=== PATIENT | male | born 1960 | race Caucasian/White ===

== ENCOUNTER 2021-05-31 13:39 | Outpatient (REF) | payer BC, SELFPAY ==
--- NOTE | ~2021-05-31 | XR_ITS ---
EXAMINATION: XR BILATERAL HIPS WITH AP PELVIS CLINICAL INFORMATION: Hip pain. COMPARISON: 06/04/2018 TECHNIQUE: 2 views of each hip. FINDINGS: There is no fracture or dislocation. The femoral heads are well-seated within their acetabula. There is mild joint space narrowing of both hips with subchondral sclerosis. Small marginal osteophytes. The pelvic rim is intact. The sacroiliac joints and pubic symphysis are intact. Phleboliths in the pelvis. XR/XR hips KOBI min 3V IMPRESSION: Mild degenerative changes of both hips, similar to prior.
== END 2021-05-31 13:40 | disposition home or self-care (01) ==
LOC: HO.HMGCX 13:39
PROVIDERS: PCP Internal Medicine; Visit Provider Internal Medicine
DX: M25.551 Pain in right hip (principal); M25.552 Pain in left hip
CPT/HCPCS: 73522

== ENCOUNTER → 2021-07-15 13:14 | Outpatient (BNVA) | payer BC, SELFPAY | PROVIDERS: PCP Internal Medicine; Visit Provider Physician Assistant Medical | DX: F17.210 Nicotine dependence, cigarettes, uncomplicated (principal); Z71.6 Tobacco abuse counseling | CPT/HCPCS: G0296 ==

== ENCOUNTER 2021-10-09 10:19 | Emergency (ER) | payer BC, SELFPAY ==
--- NOTE | ~2021-10-09 | XR_ITS ---
EXAMINATION: XR LUMBOSACRAL SPINE CLINICAL INFORMATION: Low back pain COMPARISON: January 2018 TECHNIQUE: Three views of the lumbosacral spine. FINDINGS: The vertebral bodies and posterior elements are normal. The disc spaces are preserved and the vertebral alignment is normal. There is minimal spurring of endplates of L3-L4 and mild facet hypertrophy at the level of L4-L5 and L5-S1, without interval change. The paraspinal soft tissues are normal. XR/XR lumbar spine 2-3V IMPRESSION: Minimal degenerative changes without interval change.
[2021-10-09 10:29] VITALS: BP 169/88; PULSE 118; RESP 20; TEMP 36.3; O2SAT 97; BMI 28.8
--- NOTE | 2021-10-09 12:21 | ED.BACK ---
HPI - Back Pain/Injury General Chief Complaint: Back Pain/Injury Stated Complaint: Back pain Time Seen by Provider: 10/09/21 12:21 Source: patient Mode of arrival: ambulatory Limitations: no limitations History of Present Illness HPI Narrative: 61-year-old male past medical history anxiety, hypertension, chronic right flank pain presenting to the emergency department with complaints of lower back pain status post heavy lifting yesterday. Patient tells me that he was Patient denies numbness, tingling, urinary/bowel incontinence, weakness, saddle paresthesias, chest pain, shortness of breath, fevers, chills, nausea, vomiting. Patient denies history of IV drug abuse. Denies history of previous back procedures/surgeries. MD elicited complaint: back pain Pertinent past history: other (heavy lifting ) Onset (ago): day(s) (2) Timing: constant Severity: severe Quality: spasming and throbbing Location: lumbar spine Radiation: none Exacerbating factors: none Relieving factors: none Context: while lifting Associated symptoms: denies other symptoms Related Data Previous Rx's Medication Instructions Recorded atorvastatin 40 mg tablet 40 mg PO DAILY #90 tab 08/30/20 metoprolol succinate 100 mg 150 mg PO DAILY #135 tab 08/30/20 tablet,extended release 24 hr pantoprazole 40 mg tablet,delayed 40 mg PO DAILY #30 tab 05/02/21 release bupropion HCl 150 mg tablet,12 hr 150 mg PO DAILY #90 tab 06/23/21 sustained-release cyclobenzaprine 10 mg tablet 10 mg PO BEDTIME PRN #7 tab 10/09/21 lidocaine 5 % topical patch 1 patch TOPICAL DAILY PRN #15 ea 10/09/21 naproxen 500 mg tablet 500 mg PO BID #14 tab 10/09/21 Allergies Allergy/AdvReac Type Severity Reaction Status Date / Time No Known Allergies Allergy Verified 05/31/21 12:59 Review of Systems Review of Systems: Constitutional : No Weight loss, No Fever, No Chills, No Fatigue, No Malaise ENT/Mouth : No sore throat, No Rhinorrhea Eyes: No Eye Pain, No Swelling, No Redness Cardiovascular : No Chest Pain, No SOB, No Dyspnea on Exertion, No Orthopnea, No Edema, No Palpitations Respiratory : No Cough, No Sputum, No Wheezing Gastrointestinal : No Nausea, No Vomiting, No Diarrhea, No Constipation, No abdominal Pain, No Hematochezia, No Melena Genitourinary : No Dysuria, No Urinary Frequency, No Hematuria, Musculoskeletal : + joint pain, No Myalgias, No Joint Swelling Skin : No Skin Lesions, No rash Neuro : No Weakness, No Numbness, No Dizziness, No Headache Psych : No Anxiety/Panic, No Depression All other systems reviewed and are negative PMFSH Past Medical History Attestation statement: The following information was validated with the patient. Source: old records reviewed and nursing notes reviewed Medical History Chronic anxiety Chronic right flank pain Colonoscopy refused Complex renal cyst Hip pain, bilateral Hyperlipidemia Hypertension Personal history of nicotine dependence Renal cyst, acquired, right Tobacco dependence Surgical History History of colonoscopy History of left knee surgery Social History Social History Housing: House Alcohol intake: current Alcohol intake frequency: holidays/special occasions only Alcohol type: beer Patient Tobacco Use Status: Current everyday Tobacco user Tobacco use type: Cigarette Cigarettes Per Day: 15 Years Smoked: 35, onset 23, 3/4ppd x 35yrs, 25+PYH Advance Directives: No Advance Directives Information Provided: No Current occupational status: employed Physical Exam Vital Signs: Vital Signs: Last Vital Signs Temp 97.4 F 10/09/21 10:29 Pulse 118 H 10/09/21 10:29 Resp 20 10/09/21 10:29 BP 169/88 H 10/09/21 10:29 Pulse Ox 97 10/09/21 10:29 BMI result Body Mass Index 28.8 Vital signs stable. Appearance: Alert.? Oriented X3.? No acute distress.? Head: Normocephalic, atraumatic, no step-offs or deformities Eyes: Pupils equal, round and reactive to light.? CVS: Normal heart rate and rhythm.? Pulses normal.? Respiratory: No respiratory distress.? Breath sounds normal.? Abdomen: Soft and nontender.? Skin: Skin warm and dry.? Normal skin color.? Normal skin turgor.? Extremities: 5/5 strength to bilateral upper and lower extremities. Negative straight leg raise b/l Back: No midline tenderness, no C-spine tenderness, + full range of motion however pain to lower back with forward flexion and extension, no CVA tenderness bilaterally. + pain w/ palpation of lumbar paraspinous muscles b/l. Neuro: Oriented X 3.? No motor deficit.? No sensory deficit. CN 2-12 intact . No saddle paresthesias. 2+ patellar reflexes equal bilateral. Two point extinction intact. Course Reevaluation(s) Reevaluation #1: Educated patient on treatment, diagnosis. Advised him to return with new or worsening symptoms. Outlined these symptoms on his discharge. Comfortable w/ discharge home. I also advised patient to follow-up with his PCP. Upon discharge patient ambulating with steady gait. Normal strength. Neuro exam nonfocal. No sensory or motor impairment. No saddle paresthesias. Likely muscle strain or herniated disc. Advised him to follow-up with his PCP to discuss future imaging such as MRI. Time: 12:25 MDM - Back Pain/Injury MDM Narrative Medical decision making narrative: 1223 61 yo m presenes w/ lower back pain s/p heavy lifting X2 days PE with pain w/ palpation of lumbar paraspinous muscles. Pain to lower back with forward bending, twisting. 2+ patellar reflexes equal bilateral. Sensory motor intact upper and lower extremities. No saddle paresthesias. 5/5 strength upper and lower extremities. Patient upset because I was not giving him a narcotic while here. I explained to him that I could not give him a narcotic as he is driving home and he does not want to wait 4 hours. Refused Tordol. Plan at this time is to discharge patient home with NSAID, muscle relaxers. Patient requesting imaging Medical Records Attestation: I reviewed the patient's medical records. Lab Data Attestation: I reviewed the patient's lab results. Critical Care Time Critical Care Time Critical Care Time: No Discharge Plan Discharge Clinical Impression: Strain of lumbar region Patient Disposition: Home, Self-Care Instructions: Low Back Strain (ED), Acute Low Back Pain (ED) Additional Instructions: Take your medications as prescribed. If you were prescribed antibiotics today, it is important that you take your medication to their entirety, do not skip any doses, do not finish them early. Follow-up with your primary care provider this week. You can speak to them about the possibility of further imaging such as an MRI. As I explained to you x-rays do not show herniated discs. Return to the emergency department with new or worsening symptoms. Such as fevers, chills, chest pain, shortness of breath, nausea, vomiting, dizziness, headache, vision changes, lethargy, inability control urine or stool, weakness numbness or tingling In case of emergency call 911 I sent a muscle relaxer to her pharmacy, this medication can make you sleepy. Do not take this when driving or operating machinery. Use this medication with caution. FINDINGS: The vertebral bodies and posterior elements are normal. The disc spaces are preserved and the vertebral alignment is normal. There is minimal spurring of endplates of L3-L4 and mild facet hypertrophy at the level of L4-L5 and L5-S1, without interval change. The paraspinal soft tissues are normal. XR/XR lumbar spine 2-3V IMPRESSION: Minimal degenerative changes without interval change. Prescriptions: New cyclobenzaprine 10 mg tablet 10 mg PO BEDTIME PRN (Reason: muscle spasm) Qty: 7 0RF lidocaine 5 % adhesive patch,medicated 1 patch topical DAILY PRN (Reason: pain) Qty: 15 0RF Rx Instructions: leave on most painful area for up to 12 hrs naproxen 500 mg tablet 500 mg PO BID Qty: 14 0RF No Action atorvastatin 40 mg tablet 40 mg PO DAILY Qty: 90 3RF metoprolol succinate 100 mg tablet extended release 24 hr 150 mg PO DAILY Qty: 135 3RF pantoprazole 40 mg tablet,delayed release (DR/EC) 40 mg PO DAILY Qty: 30 4RF bupropion HCl 150 mg tablet sustained-release 12 hr 150 mg PO DAILY Qty: 90 3RF Referrals: Parris Devi MD [Primary Care Provider] - 2 days Stand Alone Forms: Work/School Release
[2021-10-09] MEDS: Acetaminophen 325 MG TABLET 975 MG PO (12:45)
[2021-10-09] MEDS: Lidocaine 4 % Patch ADH..PATCH 1 PATCH TRANSDERMA (12:46)
== END 2021-10-09 13:27 | disposition home or self-care (01) ==
PROVIDERS: Emergency Provider Emergency Medicine; PCP Internal Medicine
DX: S39.012A Strain of muscle, fascia and tendon of lower back, initial encounter (principal); I10 Essential (primary) hypertension; X50.0XXA Overexertion from strenuous movement or load, initial encounter; Y93.9 Activity, unspecified; Y92.9 Unspecified place or not applicable; Y99.9 Unspecified external cause status
CPT/HCPCS: 72100; 99283; 99284

== ENCOUNTER 2022-07-29 07:15 | Outpatient (REF) | payer BC, SELFPAY ==
[2022-07-29 10:50] LABS: MANUAL DIFF FLAG NO
[2022-07-29 10:55] LABS: Basophils Percent Auto 0.6 % (0-2); Eosinophils Absolute Auto 0.3 X10*3/uL (0.0-0.4); Eosinophils Percent Auto 4.5 % (0-4); Hematocrit 46.6 % (42.0-52.0); Hemoglobin 15.1 g/dl (14.0-18.0); Imm Gran Abs Auto 0.02 X10*3/uL (0.00-0.03); Imm Gran Pct Auto 0.3 % (0.0-0.4); Lymphocytes Absolute Auto 1.4 X10*3/uL (1.2-4.9); Lymphocytes Percent Auto 21.1 % (20-40); Mean Corpuscular HGB Conc 32.4 g/dl (31.0-36.0); Mean Corpuscular Hemoglobin 30.6 pg (27.0-33.0); Mean Corpuscular Volume 94.3 fL (80.0-98.0); Mean Platelet Volume 11.1 fL (9.4-12.4); Monocytes Absolute Auto 0.6 X10*3/uL (0.1-1.2); Monocytes Percent Auto 8.9 % (2-11); Neutrophils Absolute Auto 4.1 x10*3/uL (2.0-8.3); Neutrophils Percent Auto 64.6 % (45-73); Platelet Count 245 X10*3/uL (160-400); Red Blood Count 4.94 X10*6/uL (4.60-5.80); Red Cell Distribution Width 14.3 % (11.0-16.0); White Blood Count 6.4 X10*3/uL (4.8-10.8)
[2022-07-29 12:34] LABS: Alanine Aminotransferase 36 U/L (0-40); Albumin Level 4.3 g/dL (3.5-5.0); Alkaline Phosphatase 94 U/L (39-117); Anion Gap 15 (12-20); Aspartate Amino Transferase 27 U/L (5-37); Bilirubin Total 0.5 mg/dL (0.0-1.0); Blood Urea Nitrogen 18 mg/dL (9-16); Calcium 9.5 mg/dL (8.4-10.2); Carbon Dioxide 25 mmol/L (22-29); Chloride 109 mmol/L (96-108); Cholesterol 195 mg/dL; Estimated Glomerular Filt Rate > 60; Glucose Fasting 116 mg/dL (60-99); HDL Cholesterol 36 mg/dL; PSA,Total (Free>4and<10) 1.93 ng/mL (0.00-4.00); Potassium 5.3 mmol/L (3.3-5.1); Sodium 144 mmol/L (135-145); Triglycerides 552 mg/dL
== END 2022-07-29 07:16 | disposition home or self-care (01) ==
LOC: HO.HMGCLDS 07:15
PROVIDERS: Visit Provider Internal Medicine
DX: Z12.5 Encounter for screening for malignant neoplasm of prostate (principal); E78.5 Hyperlipidemia, unspecified; I10 Essential (primary) hypertension
CPT/HCPCS: 36415; 80053; 80061; 84153; 85025

== ENCOUNTER 2022-09-03 11:23 | Emergency (ER) | payer BC, SELFPAY ==
[2022-09-03 11:29] VITALS: BP 142/86; PULSE 109; RESP 18; TEMP 36.4; O2SAT 99; BMI 28.8
--- NOTE | 2022-09-03 11:29 | ED_ITS ---
HPI - Neck Pain/Injury General Chief Complaint: General Medical Stated Complaint: Neck pain Time Seen by Provider: 09/03/22 11:31 Source: patient and family Mode of arrival: ambulatory Limitations: no limitations History of Present Illness HPI Narrative: 61 yo male with history of HTN presents to the ER for evaluation of non- traumatic, left sided neck pain & stiffness that has been worsening for the last 2 days. He states it has been very sore and stiff on the left side of his neck. It is worse with range of motion and movement. He denies any associated headache or fevers. He did have night sweats 2 nights ago. No other signs of infection. He never has had neck pain like this before. He denies any radiation of the pain. No numbness, weakness, tingling in the left upper extremity. He has taken Motrin with intermittent, slight improvement. MD complaint: neck pain Onset (ago): day(s) (2) Place: home Radiation: left lateral Severity: moderate Quality: aching and spasming Duration: constant Relieving factors: remaining still Exacerbating factors: movement of neck Context: unknown Associated symptoms: none Treatments prior to arrival: none Related Data Previous Rx's Medication Instructions Recorded atorvastatin 40 mg tablet 40 mg PO DAILY #90 tabs 08/09/22 bupropion HCl 150 mg tablet,12 hr 150 mg PO DAILY #90 tabs 08/09/22 sustained-release fenofibrate 160 mg tablet 160 mg PO DAILY #90 tabs 08/09/22 metoprolol succinate 100 mg 150 mg PO DAILY #135 tabs 08/09/22 tablet,extended release 24 hr pantoprazole 40 mg tablet,delayed 40 mg PO DAILY #90 tabs 08/09/22 release varenicline 0.5 mg (11)-1 mg (42) See Rx Instructions PO PER PKG DIR 08/09/22 tablets in a dose pack (Chantix #53 ea Starting Month Box) varenicline 1 mg tablet (Chantix 1 mg PO BID #56 tabs 08/09/22 Continuing Month Box) cyclobenzaprine 10 mg tablet 10 mg PO TID PRN muscle spasm #14 09/03/22 tabs ibuprofen 600 mg tablet 600 mg PO Q8H PRN pain #14 tabs 09/03/22 lidocaine 5 % topical patch 1 patch topical DAILY #15 ea 03/12/23 oxycodone 5 mg tablet 5 mg PO BID PRN severe pain (scale 09/03/22 score 7-10) #4 tabs Allergies Allergy/AdvReac Type Severity Reaction Status Date / Time No Known Allergies Allergy Verified 09/03/22 11:31 Review of Systems Review of Systems: Yes all other systems are reviewed and are negative [facility] Past Medical History Medical History Chronic anxiety Chronic right flank pain Colonoscopy refused Complex renal cyst Hip pain, bilateral Hyperlipidemia Hypertension Personal history of nicotine dependence Renal cyst, acquired, right Tobacco dependence Surgical History History of colonoscopy History of left knee surgery Social History Social History Housing: House Alcohol intake: current Alcohol intake frequency: holidays/special occasions only Alcohol type: beer Patient Tobacco Use Status: Current everyday Tobacco user Tobacco use type: Cigarette Cigarettes Per Day: 15 Years Smoked: 35, onset 23, 3/4ppd x 37yrs, 25+PYH e-Cigarette/Vaping Use: Never Used Advance Directives: No Advance Directives Information Provided: No Current occupational status: employed Cognitive needs: No Hearing needs: No Vision needs: Yes Physical Exam Vital Signs: Vital Signs: Last Vital Signs Temp 97.5 F 09/03/22 11:29 Pulse 109 H 09/03/22 11:29 Resp 18 09/03/22 11:29 BP 142/86 H 09/03/22 11:29 Pulse Ox 99 09/03/22 11:29 O2 Del Method 09/03/22 11:29 BMI result Body Mass Index 28.8 Appearance: Alert. Oriented X3. No acute distress. HEENT: normal external inspection Neck: normal inspection, left lateral neck with palpable muscle spasm and soft tissue tenderness, pain with ROM. no midline tenderness. no nuchal rigidity. CVS: Normal heart rate and rhythm. Pulses normal. Respiratory: No respiratory distress. Skin: Skin warm and dry. Normal skin color. Normal skin turgor. No rashes. Extremities: normal inspection x4, normal ROM Neuro: Oriented X 3. No motor deficit. No sensory deficit. Course Reevaluation(s) Reevaluation #1: much improved after meds. stable for d/c home. Medications Administered Discontinued Medications Generic Name Dose Route Start Last Admin Trade Name Donte PRN Reason Stop Dose Admin Cyclobenzaprine HCl 10 mg 09/03/22 11:31 09/03/22 11:49 Cyclobenzaprine Hcl 10 Mg Tablet PO 09/03/22 11:32 10 mg ONCE ONE Administration Ketorolac Tromethamine 30 mg 09/03/22 11:31 09/03/22 11:49 Ketorolac Tromethamine 30 Mg/Ml Vial IM 09/03/22 11:32 30 mg ONCE ONE Administration Oxycodone HCl 5 mg 09/03/22 11:31 09/03/22 11:50 Oxycodone Hcl Immed Release 5 Mg Tablet PO 09/03/22 11:32 5 mg ONCE ONE Administration Medical Decision Making Medical Decision Making MDM Narrative: 61-year-old male presents to the ER for evaluation of nontraumatic left-sided neck pain and tightness that started 2 days ago. He denies any injury or trauma. He has palpable spasm along lateral neck without any associated headaches or lymphadenopathy. Exam and clinical presentation are consistent with cervical muscle strain/spasmodic torticollis. He is tachycardic in triage and in pain. Will medicate and reassess. 12:30 - patient reports significant improvement in his pain after dose of Toradol, muscle relaxer and pain medication. Will discharge on similar regimen. Discussed diagnosis and management as well as return precautions. Stable for discharge home. All questions were answered. Patient agrees with plan Differential Diagnosis Differential Diagnoses: The differential diagnosis associated with the presentation includes Torticollis, cervical muscle strain, less likely arterial dissection, no evidence of any skin rash or abscess Independent Historian Clinical information obtained from an independent historian. History obtained from or confirmed by: Spouse External Record Review External record reviewed: Prior outpatient labs Prescription Management I considered prescription management with: Pain Medication Chronic Conditions Patient?s care impacted by: Hypertension Critical Care Time Critical Care Time Critical Care Time: No Discharge Plan Discharge Clinical Impression: Acute torticollis Patient Disposition: Home, Self-Care Instructions: Spasmodic Torticollis (ED) Additional Instructions: Take the prescribed medications as directed. Use ice or heat to the area several times per day, which ever feels better. Gently work on range of motion and gentle massage to the area. Follow-up with your doctor as needed. If you develop new or worsening symptoms call 911 or come back to the ER for further evaluation. Prescriptions: New cyclobenzaprine 10 mg tablet 10 mg PO TID PRN (Reason: muscle spasm) Qty: 14 0RF lidocaine 5 % adhesive patch,medicated 1 patch topical DAILY Qty: 15 0RF Rx Instructions: leave on most painful area for up to 12 hrs ibuprofen 600 mg tablet 600 mg PO Q8H PRN (Reason: pain) Qty: 14 0RF oxycodone 5 mg tablet 5 mg PO BID PRN (Reason: severe pain (scale score 7-10)) Qty: 4 0RF Rx Instructions: Partial Fill upon patient request. No Action atorvastatin 40 mg tablet 40 mg PO DAILY Qty: 90 3RF bupropion HCl 150 mg tablet sustained-release 12 hr 150 mg PO DAILY Qty: 90 3RF metoprolol succinate 100 mg tablet extended release 24 hr 150 mg PO DAILY Qty: 135 3RF pantoprazole 40 mg tablet,delayed release (DR/EC) 40 mg PO DAILY Qty: 90 3RF varenicline [Chantix Starting Month Box] 0.5 mg (11)- 1 mg (42) tablets,dose pack See Rx Instructions PO PER PKG DIR Qty: 53 0RF Rx Instructions: PO PER PKG DIR varenicline [Chantix Continuing Month Box] 1 mg tablet 1 mg PO BID Qty: 56 1RF fenofibrate 160 mg tablet 160 mg PO DAILY Qty: 90 3RF Referrals: Parris Devi MD [Primary Care Provider] - Stand Alone Forms: Work/School Release Discharge Date/Time: 09/03/22 12:39
[2022-09-03] MEDS: Cyclobenzaprine HCl 10 MG TABLET PO (11:49)
[2022-09-03] MEDS: Ketorolac Tromethamine 30 MG/ML VIAL IM (11:49)
[2022-09-03] MEDS: oxyCODONE HCl Immed Release 5 MG TABLET PO (11:50)
== END 2022-09-03 12:39 | disposition home or self-care (01) ==
PROVIDERS: Emergency Provider Student in an Organized Health Care Education/Training Program; PCP Internal Medicine
DX: M43.6 Torticollis (principal); M54.2 Cervicalgia; R51.9 Headache, unspecified; F17.210 Nicotine dependence, cigarettes, uncomplicated; Z79.899 Other long term (current) drug therapy; Z71.6 Tobacco abuse counseling
CPT/HCPCS: 96372; 99283; 99284; J1885

== ENCOUNTER 2022-09-29 06:45 | Outpatient (REF) | payer BC, SELFPAY ==
[2022-09-29 12:06] LABS: Estimated Average Glucose 126 mg/dL
[2022-09-29 12:07] LABS: Alanine Aminotransferase 23 U/L (0-40); Albumin Level 3.9 g/dL (3.5-5.0); Alkaline Phosphatase 80 U/L (39-117); Anion Gap 10 (12-20); Aspartate Amino Transferase 23 U/L (5-37); Bilirubin Total 0.8 mg/dL (0.0-1.0); Blood Urea Nitrogen 19 mg/dL (9-16); Calcium 9.1 mg/dL (8.4-10.2); Carbon Dioxide 29 mmol/L (22-29); Chloride 108 mmol/L (96-108); Cholesterol 179 mg/dL; Estimated Glomerular Filt Rate > 60; Glucose Fasting 101 mg/dL (60-99); HDL Cholesterol 44 mg/dL; LDL Cholesterol Calculated 87 mg/dl; Potassium 5.2 mmol/L (3.3-5.1); Sodium 142 mmol/L (135-145); Total Protein 6.5 g/dL (6.5-8.0); Triglycerides 241 mg/dL
== END 2022-09-29 06:46 | disposition home or self-care (01) ==
LOC: HO.HMGCLDS 06:45
PROVIDERS: PCP Internal Medicine; Visit Provider Internal Medicine
DX: E78.5 Hyperlipidemia, unspecified (principal); I10 Essential (primary) hypertension
CPT/HCPCS: 36415; 80053; 80061; 83036

== ENCOUNTER 2023-01-19 12:47 | Outpatient (AMB) | payer BC, SELFPAY ==
[2023-01-19 13:01] VITALS: BP 148/80; PULSE 87; O2SAT 95; BMI 27.4
--- NOTE | 2023-01-19 13:01 | A.OFFPC_ITS ---
Vital Signs 01/19/23 13:01 Height 5 ft 8 in Weight 180 lb BMI 27.4 BP 148/80 H Blood Pressure Location Lt brachial Position Sitting Pulse 87 Pulse Source Pulse Oximeter Pulse Oximetry (%) 95 Oxygen Delivery Method Room Air Intake Visit Reasons: Followup chest pain Intake Note: Pt is here today for a follow up visit.Pt states that he had chest pain and high BP on 01/16/23. Allergies No Known Allergies Allergy (Verified 01/19/23 13:04) Medication List - Last Reconciled 01/19/23 by Parris Devi MD atorvastatin 40 mg PO DAILY bupropion HCl 150 mg PO DAILY fenofibrate 160 mg PO DAILY ibuprofen 600 mg PO Q8H PRN metoprolol succinate ER 150 mg (1.5 x 100 mg) PO DAILY omeprazole 20 mg PO QAM pantoprazole 40 mg PO DAILY Tobacco use date assessed: 01/19/23 Fall risk assessment: No Falls in past year Last assessed Fall Risk: 01/19/23 Dental Screening Dental Screen Date: 01/19/23 Did you have a dental visit in the last 12 months?: Yes Did you have a dental problem in the last 6 months where you did not have access to dental care?: No Was dental information given to patient?: Patient has dentist HPI Followup chest pain HPI Details Pt c/o chest pain sharp needle like, lasting 5 mins, not related to physical activity. Patient denies shortness of breath diaphoresis palpitations associated with the pain.. Pt had an 2 episodes of dizziness , lightheadedness lasting 5 mins each 3 days ago. He denies nausea and vomiting, diplopia, weakness or numbness in extremities. Patient reports intermittent headache. [facility] Medical History Chronic anxiety Chronic right flank pain Colonoscopy refused Complex renal cyst Hip pain, bilateral Hoarseness Hyperlipidemia Hypertension Personal history of nicotine dependence Renal cyst, acquired, right Tobacco dependence Surgical History History of colonoscopy History of left knee surgery Family History Father No problems noted. Mother Stroke Social History Housing: House Alcohol intake: current Alcohol intake frequency: holidays/special occasions only Alcohol type: beer Patient Tobacco Use Status: Current everyday Tobacco user Tobacco use type: Cigarette Cigarettes Per Day: 15 Years Smoked: 35, onset 23, 3/4ppd x 35yrs, 25+PYH e-Cigarette/Vaping Use: Never Used Current occupational status: employed Cognitive needs: No Hearing needs: No Vision needs: Yes Questionnaire Thrive Questionnaire Date Thrive assessed: 08/09/22 AUDIT C Alcohol Use Questionnaire (AUDIT-C) 1. How often do you have a drink containing alcohol?: 2-4 times a month 2. How many drinks containing alcohol do you have on a typical day when you are drinking?: 1 or 2 3. How often do you have six or more drinks on one occasion?: Never Total Score: 2 EDITH-7 AMB Questionnaire EDITH-7 Date EDITH - 7 assessed: 08/09/22 Source: Developed by Drs. Mir Barros, Stephanie Greene, Rashad Avila and colleagues, with an educational alyssa from [employer]. Review of Systems Const All systems reviewed & are unremarkable except as noted in HPI and below Reports no additional complaints Eyes Reports no additional complaints ENT Reports no additional complaints Card Reports no additional complaints Resp Reports no additional complaints GI Reports no additional complaints Reports no additional complaints Physical exam (Primary Care) Vital Signs: Last Vital Signs Pulse 87 01/19/23 13:01 BP 148/80 H 01/19/23 13:01 Pulse Ox 95 01/19/23 13:01 Oxygen Delivery Method Room Air 01/19/23 13:01 BMI result Body Mass Index 27.4 Tobacco/Smoking Status: Tobacco use Status Tobacco use date assessed 01/19/23 01/19/23 13:08 Patient Tobacco Use Status Current everyday Tobacco 01/19/23 13:02 Tobacco use type Cigarette 01/19/23 13:02 e-Cigarette/Vaping Use Never Used 01/19/23 13:02 Thrive Assessment: Date of Thrive Assessment Date Thrive assessed 08/09/22 01/19/23 13:02 Const General: no acute distress HENMT Head: Yes normal to inspection Neck Neck: Yes supple Resp Effort & Inspection: normal respiratory effort Auscultation: clear to auscultation bilaterally Cardio Rhythm: regular rhythm Heart sounds: S1 normal heart sound present and S2 normal heart sound present Assessment and Plan Assessment & Plan (1) Hypertension: Code(s): I10 - Essential (primary) hypertension Plan: Add 5 mg of amlodipine to metoprolol. Low-sodium diet of physical activity discussed with the patient. (2) Chest pain: Code(s): R07.9 - Chest pain, unspecified Plan: EKG showed normal sinus rhythm left atrial enlargement no acute ST-T changes (3) Dizziness: Code(s): R42 - Dizziness and giddiness Plan: A comprehensive panel if symptoms persist meclizine will be added follow-up in 5 weeks Orders: Orders Comprehensive Met. Panel Today I10 - Essential (primary) hypertension, R07.9 - Chest pain, unspecified Troponin-I High Sensitivity Today I10 - Essential (primary) hypertension, R07.9 - Chest pain, unspecified Complete Blood Count Auto Diff Today I10 - Essential (primary) hypertension, R07.9 - Chest pain, unspecified Medications: New amlodipine 5 mg PO DAILY 90 tabs 0RF Coding Level of Care Code Est Pt Level 4 (31445) Diagnoses Hypertension I10 Chest pain R07.9 Dizziness R42
== END 2023-01-19 14:13 | disposition home or self-care (01) ==
PROVIDERS: PCP Internal Medicine; Visit Provider Internal Medicine
DX: I10 Essential (primary) hypertension (principal); R07.9 Chest pain, unspecified; R42 Dizziness and giddiness
CPT/HCPCS: 99214

== ENCOUNTER 2023-01-19 14:08 | Outpatient (REF) | payer BC, SELFPAY ==
[2023-01-19 16:16] LABS: MANUAL DIFF FLAG NO
[2023-01-19 16:35] LABS: Basophils Percent Auto 0.4 % (0-2); Eosinophils Absolute Auto 0.3 X10*3/uL (0.0-0.4); Eosinophils Percent Auto 3.5 % (0-4); Hematocrit 43.6 % (42.0-52.0); Hemoglobin 14.2 g/dl (14.0-18.0); Imm Gran Abs Auto 0.03 X10*3/uL (0.00-0.03); Imm Gran Pct Auto 0.4 % (0.0-0.4); Lymphocytes Absolute Auto 1.8 X10*3/uL (1.2-4.9); Lymphocytes Percent Auto 24.4 % (20-40); Mean Corpuscular HGB Conc 32.6 g/dl (31.0-36.0); Mean Corpuscular Volume 92.2 fL (80.0-98.0); Mean Platelet Volume 11.2 fL (9.4-12.4); Monocytes Absolute Auto 0.7 X10*3/uL (0.1-1.2); Monocytes Percent Auto 8.8 % (2-11); Neutrophils Absolute Auto 4.7 x10*3/uL (2.0-8.3); Neutrophils Percent Auto 62.5 % (45-73); Platelet Count 221 X10*3/uL (160-400); Red Blood Count 4.73 X10*6/uL (4.60-5.80); Red Cell Distribution Width 14.3 % (11.0-16.0); White Blood Count 7.5 X10*3/uL (4.8-10.8)
[2023-01-19 17:01] LABS: Alanine Aminotransferase 22 U/L (0-40); Albumin Level 3.9 g/dL (3.5-5.0); Alkaline Phosphatase 69 U/L (39-117); Anion Gap 16 (12-20); Aspartate Amino Transferase 20 U/L (5-37); Bilirubin Total 0.4 mg/dL (0.0-1.0); Blood Urea Nitrogen 17 mg/dL (9-16); Calcium 9.6 mg/dL (8.4-10.2); Carbon Dioxide 22 mmol/L (22-29); Chloride 106 mmol/L (96-108); Estimated Glomerular Filt Rate > 60; Glucose Random 98 mg/dL (60-115); Sodium 139 mmol/L (135-145); Total Protein 6.9 g/dL (6.5-8.0)
== END 2023-01-19 14:09 | disposition home or self-care (01) ==
LOC: HO.HMGCLDS 14:08
PROVIDERS: PCP Internal Medicine; Visit Provider Internal Medicine
DX: R07.9 Chest pain, unspecified (principal); I10 Essential (primary) hypertension
CPT/HCPCS: 36415; 80053; 84484; 85025

== ENCOUNTER 2023-02-10 06:55 | Outpatient (REF) | payer BC, SELFPAY ==
[2023-02-10 11:35] LABS: MANUAL DIFF FLAG NO
[2023-02-10 11:38] LABS: Basophils Percent Auto 0.7 % (0-2); Eosinophils Absolute Auto 0.4 X10*3/uL (0.0-0.4); Eosinophils Percent Auto 6.9 % (0-4); Hematocrit 45.4 % (42.0-52.0); Hemoglobin 14.9 g/dl (14.0-18.0); Imm Gran Abs Auto 0.01 X10*3/uL (0.00-0.03); Imm Gran Pct Auto 0.2 % (0.0-0.4); Lymphocytes Absolute Auto 1.6 X10*3/uL (1.2-4.9); Lymphocytes Percent Auto 26.8 % (20-40); Mean Corpuscular HGB Conc 32.8 g/dl (31.0-36.0); Mean Corpuscular Hemoglobin 29.6 pg (27.0-33.0); Mean Corpuscular Volume 90.3 fL (80.0-98.0); Mean Platelet Volume 11.6 fL (9.4-12.4); Monocytes Absolute Auto 0.6 X10*3/uL (0.1-1.2); Monocytes Percent Auto 10.6 % (2-11); Neutrophils Absolute Auto 3.2 x10*3/uL (2.0-8.3); Neutrophils Percent Auto 54.8 % (45-73); Platelet Count 223 X10*3/uL (160-400); Red Blood Count 5.03 X10*6/uL (4.60-5.80); Red Cell Distribution Width 14.7 % (11.0-16.0); White Blood Count 5.8 X10*3/uL (4.8-10.8)
[2023-02-10 11:44] LABS: Appearance Urine Clear; Color Urine Yellow; Glucose Urine UA Negative (Negative); Leukocyte Esterase Urine Negative (Negative); Nitrite Urine Negative (Negative); Specific Gravity - Urine 1.015 (1.005-1.025); Urine Blood Negative (Negative); Urine Ketones Negative (Negative); Urine Protein Negative (Neg-Trace)
[2023-02-10 11:47] LABS: Bacteria Urine None Seen (None Seen); Hyaline Casts Urine 0-2 /LPF (0-2); RBC Urine 0-2 /HPF (0-2); Squamous Epithelial Cell Urine 0-2 /HPF (0-2); WBC Urine 0-5 /HPF (0-5)
[2023-02-10 11:52] LABS: Alanine Aminotransferase 30 U/L (0-40); Alkaline Phosphatase 70 U/L (39-117); Anion Gap 12 (12-20); Aspartate Amino Transferase 27 U/L (5-37); Bilirubin Total 0.4 mg/dL (0.0-1.0); Blood Urea Nitrogen 15 mg/dL (9-16); Calcium 9.6 mg/dL (8.4-10.2); Carbon Dioxide 26 mmol/L (22-29); Chloride 109 mmol/L (96-108); Cholesterol 154 mg/dL; Estimated Average Glucose 114 mg/dL; Estimated Glomerular Filt Rate > 60; Glucose Fasting 96 mg/dL (60-99); HDL Cholesterol 52 mg/dL; Hemoglobin A1C 151.7349 umol/L; Hemoglobin A1c % 5.6 %; LDL Cholesterol Calculated 70 mg/dl; Potassium 4.4 mmol/L (3.3-5.1); Sodium 143 mmol/L (135-145); Total Protein 7.2 g/dL (6.5-8.0); Triglycerides 163 mg/dL
[2023-02-10 12:02] LABS: Creatinine Urine 89.47 mg/dL; Microalbum/Creatinine Ratio Ur 8.9 ug/mg cr
== END 2023-02-10 06:56 | disposition home or self-care (01) ==
LOC: HO.HMGCLDS 06:55
PROVIDERS: PCP Internal Medicine; Visit Provider Internal Medicine
DX: E78.5 Hyperlipidemia, unspecified (principal); I10 Essential (primary) hypertension; M25.511 Pain in right shoulder; R73.9 Hyperglycemia, unspecified
CPT/HCPCS: 36415; 80053; 80061; 81001; 82043; 83036; 85025

== ENCOUNTER 2023-02-15 13:25 | Outpatient (AMB) | payer BC, SELFPAY ==
[2023-02-15 13:50] VITALS: BP 136/80; PULSE 90; O2SAT 98; BMI 27.1
--- NOTE | 2023-02-15 13:50 | MHC.PC.OV ---
Vital Signs 02/15/23 13:50 Height 5 ft 8 in Weight 178 lb BMI 27.1 BP 136/80 Blood Pressure Location Lt brachial Position Sitting Pulse 90 Pulse Source Pulse Oximeter Pulse Oximetry (%) 98 Oxygen Delivery Method Room Air Intake Visit Reasons: 5 wk follow up Intake Note: Pt is here today for 5 weeks follow up visit. Allergies No Known Allergies Allergy (Verified 02/15/23 13:55) Medication List - Last Reconciled 02/15/23 by Parris Devi MD amlodipine 5 mg PO DAILY amlodipine 10 mg PO DAILY atorvastatin 40 mg PO DAILY bupropion HCl 150 mg PO DAILY fenofibrate 160 mg PO DAILY ibuprofen 600 mg PO Q8H PRN metoprolol succinate ER 150 mg (1.5 x 100 mg) PO DAILY omeprazole 20 mg PO QAM Tobacco use date assessed: 01/19/23 HPI 5 wk follow up HPI Details Pt presents for f/u HTN, hyperlipid, GERD, stable on meds. Patient has been working physically putting a new patio at home for many hours a day. [facility] Medical History Chronic anxiety Chronic right flank pain Colonoscopy refused Complex renal cyst Hip pain, bilateral Hoarseness Hyperlipidemia Hypertension Personal history of nicotine dependence Renal cyst, acquired, right Tobacco dependence Surgical History History of colonoscopy History of left knee surgery Family History Father No problems noted. Mother Stroke Social History Housing: House Alcohol intake: current Alcohol intake frequency: holidays/special occasions only Alcohol type: beer Patient Tobacco Use Status: Current everyday Tobacco user Tobacco use type: Cigarette Cigarettes Per Day: 15 Years Smoked: 35, onset 23, 3/4ppd x 35yrs, 25+PYH e-Cigarette/Vaping Use: Never Used Current occupational status: employed Cognitive needs: No Hearing needs: No Vision needs: Yes Questionnaire Thrive Questionnaire Date Thrive assessed: 08/09/22 EDITH-7 AMB Questionnaire EDITH-7 Date EDITH - 7 assessed: 08/09/22 Source: Developed by Drs. Mir L. Stephanie Barros, Rashad Avila and colleagues, with an educational alyssa from [employer]. Review of Systems Const All systems reviewed & are unremarkable except as noted in HPI and below Reports no additional complaints Eyes Reports no additional complaints ENT Reports no additional complaints Card Reports no additional complaints Resp Reports no additional complaints GI Reports no additional complaints Physical exam (Primary Care) Vital Signs: Last Vital Signs Pulse 90 02/15/23 13:50 BP 136/80 02/15/23 13:50 Pulse Ox 98 02/15/23 13:50 Oxygen Delivery Method Room Air 02/15/23 13:50 BMI result Body Mass Index 27.1 Tobacco/Smoking Status: Tobacco use Status Tobacco use date assessed 01/19/23 02/15/23 13:50 Patient Tobacco Use Status Current everyday Tobacco 02/15/23 13:50 Tobacco use type Cigarette 02/15/23 13:50 e-Cigarette/Vaping Use Never Used 02/15/23 13:50 Thrive Assessment: Date of Thrive Assessment Date Thrive assessed 08/09/22 02/15/23 13:50 Const General: no acute distress Eyes General: appearance normal, both eyes and all related structures Resp Effort & Inspection: normal respiratory effort Auscultation: clear to auscultation bilaterally Cardio Rhythm: regular rhythm Heart sounds: S1 normal heart sound present and S2 normal heart sound present GI Inspection: Yes normal to inspection Palpation (GI): Soft to palpation Assessment and Plan Assessment & Plan (1) Hypertension: Code(s): I10 - Essential (primary) hypertension Plan: Increase amlodipine from 5 mg to 10 mg and continue metoprolol, follow-up in 2 months for blood pressure (2) Hyperlipidemia: Code(s): E78.5 - Hyperlipidemia, unspecified Plan: Continue statin and fenofibrate (3) Hyperglycemia: Comment: A1c 5.6 02/14 Code(s): R73.9 - Hyperglycemia, unspecified Plan: Continue ADA diet Medications: New amlodipine 10 mg PO DAILY 90 tabs 0RF Discontinued pantoprazole Discontinued Reason: Doctor's Order 40 mg PO DAILY 90 tabs 3RF amlodipine Discontinued Reason: Doctor's Order 5 mg PO DAILY 90 tabs 0RF Coding Level of Care Code Est Pt Level 4 (57330) Diagnoses Hypertension I10 Hyperlipidemia E78.5 Hyperglycemia R73.9
== END 2023-02-15 15:27 | disposition home or self-care (01) ==
PROVIDERS: PCP Internal Medicine; Visit Provider Internal Medicine
DX: I10 Essential (primary) hypertension (principal); E78.5 Hyperlipidemia, unspecified; R73.9 Hyperglycemia, unspecified
CPT/HCPCS: 99214

== ENCOUNTER 2023-04-28 06:30 | Outpatient (REF) | payer BC, SELFPAY ==
[2023-04-28 11:36] LABS: Alanine Aminotransferase 37 U/L (0-40); Albumin Level 4.1 g/dL (3.5-5.0); Alkaline Phosphatase 84 U/L (39-117); Anion Gap 13 (12-20); Aspartate Amino Transferase 32 U/L (5-37); Bilirubin Total 0.6 mg/dL (0.0-1.0); Blood Urea Nitrogen 14 mg/dL (9-16); Calcium 9.4 mg/dL (8.4-10.2); Carbon Dioxide 26 mmol/L (22-29); Chloride 105 mmol/L (96-108); Cholesterol 154 mg/dL (<200); Estimated Glomerular Filt Rate > 60; Glucose Fasting 85 mg/dL (60-99); HDL Cholesterol 47 mg/dL (>40); LDL Cholesterol Calculated 70 mg/dL (<100); Potassium 4.1 mmol/L (3.3-5.1); Sodium 140 mmol/L (135-145); Total Protein 7.3 g/dL (6.5-8.0); Triglycerides 189 mg/dL (<150)
== END 2023-04-28 06:31 | disposition home or self-care (01) ==
LOC: HO.HMGCLDS 06:30
PROVIDERS: PCP Internal Medicine; Visit Provider Internal Medicine
DX: E78.5 Hyperlipidemia, unspecified (principal); I10 Essential (primary) hypertension
CPT/HCPCS: 36415; 80053; 80061

== ENCOUNTER 2023-05-03 13:51 | Outpatient (AMB) | payer BC, SELFPAY ==
[2023-05-03 14:14] VITALS: BP 124/68; PULSE 91; O2SAT 96; BMI 26.3
--- NOTE | 2023-05-03 14:14 | A.OFFPC_ITS ---
Vital Signs 05/03/23 14:14 Height 5 ft 8 in Weight 173 lb BMI 26.3 BP 124/68 Blood Pressure Location Lt brachial Position Sitting Pulse 91 Pulse Source Pulse Oximeter Pulse Oximetry (%) 96 Oxygen Delivery Method Room Air Intake Visit Reasons: 2 month fu Intake Note: Pt is here today for 2 months follow up visit. Allergies No Known Allergies Allergy (Verified 05/03/23 14:18) Medication List - Last Reconciled 05/03/23 by Parris Devi MD amlodipine 10 mg PO DAILY atorvastatin 40 mg PO DAILY bupropion HCl 150 mg PO DAILY fenofibrate 160 mg PO DAILY fluticasone propionate 50 mcg/actuation (Allergy Relief (fluticasone)) 1 spray intranasal DAILY ibuprofen 600 mg PO Q8H PRN metoprolol succinate ER 150 mg (1.5 x 100 mg) PO DAILY omeprazole 20 mg PO QAM Tobacco use date assessed: 01/19/23 Dental Screening Dental Screen Date: 05/03/23 Did you have a dental visit in the last 12 months?: Yes Did you have a dental problem in the last 6 months where you did not have access to dental care?: No Was dental information given to patient?: Patient has dentist HPI 2 month fu HPI Details Patient presents for the follow-up on hypertension hyperlipidemia controlled current medications. He noticed left breast mass slightly tender 3 weeks ago. Patient denies a nipple discharge. [facility] Medical History (Updated 05/03/23 @ 15:13 by Parris Devi MD) Hoarseness Personal history of nicotine dependence Renal cyst, acquired, right Colonoscopy refused Tobacco dependence Hyperlipidemia Hip pain, bilateral Chronic right flank pain Complex renal cyst Chronic anxiety Hypertension Surgical History History of left knee surgery History of colonoscopy Family History Father No problems noted. Mother Stroke Social History Housing: House Alcohol intake: current Alcohol intake frequency: holidays/special occasions only Alcohol type: beer Patient Tobacco Use Status: Current everyday Tobacco user Tobacco use type: Cigarette Cigarettes Per Day: 15 Years Smoked: 35, onset 23, 3/4ppd x 35yrs, 25+PYH e-Cigarette/Vaping Use: Never Used Current occupational status: employed Cognitive needs: No Hearing needs: No Vision needs: Yes Questionnaire Thrive Questionnaire Date Thrive assessed: 08/09/22 EDITH-7 AMB Questionnaire EDITH-7 Date EDITH - 7 assessed: 08/09/22 Source: Developed by Drs. Mir Barros, Stephanie Greene, Rashad Avila and colleagues, with an educational alyssa from [employer] Review of Systems Const All systems reviewed & are unremarkable except as noted in HPI and below Reports no additional complaints Eyes Reports no additional complaints ENT Reports no additional complaints Card Reports no additional complaints Resp Reports no additional complaints GI Reports no additional complaints Reports no additional complaints Physical exam (Primary Care) Vital Signs: Last Vital Signs Pulse 91 05/03/23 14:14 BP 124/68 05/03/23 14:14 Pulse Ox 96 05/03/23 14:14 Oxygen Delivery Method Room Air 05/03/23 14:14 BMI result Body Mass Index 26.3 Tobacco/Smoking Status: Tobacco use Status Tobacco use date assessed 01/19/23 05/03/23 14:18 Patient Tobacco Use Status Current everyday Tobacco 05/03/23 14:18 Tobacco use type Cigarette 05/03/23 14:18 e-Cigarette/Vaping Use Never Used 05/03/23 14:18 Thrive Assessment: Date of Thrive Assessment Date Thrive assessed 08/09/22 05/03/23 14:18 HENMT Head: Yes normal to inspection Eyes General: appearance normal, both eyes and all related structures Neck Neck: Yes supple Chest Breast/axilla palpation: no axillary lymphadenopathy and abnormal palpation of the breast (Left breast 2 cm dense tissue ? mass behind the nipple, no nipple discharge) Resp Effort & Inspection: normal respiratory effort Auscultation: clear to auscultation bilaterally Cardio Rhythm: regular rhythm Heart sounds: S1 normal heart sound present and S2 normal heart sound present GI Percussion: Yes normal to percussion Auscultation: normal bowel sounds Assessment and Plan Assessment & Plan (1) Hyperglycemia: Comment: A1c 5.6 02/14 Code(s): R73.9 - Hyperglycemia, unspecified (2) Hypertension: Code(s): I10 - Essential (primary) hypertension Plan: Continue current medications (3) Hyperlipidemia: Code(s): E78.5 - Hyperlipidemia, unspecified Plan: Continue statin and fenofibrate (4) Left breast mass: Code(s): N63.20 - Unspecified lump in the left breast, unspecified quadrant Plan: refer for mammogram and US (5) Anxiety: Code(s): F41.9 - Anxiety disorder, unspecified Plan: Continue bupropion and add trazodone p.r.n. for insomnia, Orders: Orders MM tomosynthesis diagnostic LT Today N63.20 - Unspecified lump in the left breast, unspecified quadrant Hemoglobin A1c 3 Months E78.5 - Hyperlipidemia, unspecified, I10 - Essential (primary) hypertension, R73.9 - Hyperglycemia, unspecified Lipid Panel 3 Months E78.5 - Hyperlipidemia, unspecified, I10 - Essential (primary) hypertension, R73.9 - Hyperglycemia, unspecified US breast LT complete Today N63.20 - Unspecified lump in the left breast, unspecified quadrant Comprehensive [place]. Panel Fast 3 Months E78.5 - Hyperlipidemia, unspecified, I10 - Essential (primary) hypertension, R73.9 - Hyperglycemia, unspecified Medications: New fluticasone propionate 50 mcg/actuation (Allergy Relief (fluticasone)) administer into each nostril 1 spray intranasal DAILY 16 grams 0RF omeprazole 20 mg PO QAM 90 caps 3RF trazodone 50 mg PO BEDTIME PRN 30 tabs 0RF insomnia Refilled amlodipine 10 mg PO DAILY 90 tabs 3RF fenofibrate 160 mg PO DAILY 90 tabs 3RF metoprolol succinate ER 150 mg (1.5 x 100 mg) PO DAILY 135 tabs 3RF omeprazole 20 mg PO QAM 90 caps 3RF atorvastatin 40 mg PO DAILY 90 tabs 3RF Coding Level of Care Code Est Pt Level 4 (48405) Diagnoses Hyperglycemia R73.9 Hypertension I10 Hyperlipidemia E78.5 Left breast mass N63.20 Anxiety F41.9
== END 2023-05-03 15:16 | disposition home or self-care (01) ==
PROVIDERS: PCP Internal Medicine; Visit Provider Internal Medicine
DX: R73.9 Hyperglycemia, unspecified (principal); I10 Essential (primary) hypertension; E78.5 Hyperlipidemia, unspecified; N63.20 Unspecified lump in the left breast, unspecified quadrant; F41.9 Anxiety disorder, unspecified
CPT/HCPCS: 99214

== ENCOUNTER 2023-08-04 06:42 | Outpatient (REF) | payer BC, SELFPAY ==
[2023-08-04 11:09] LABS: Estimated Average Glucose 117 mg/dL; Hemoglobin A1C 149.0948 umol/L; Hemoglobin A1c % 5.7 % (<6.0)
[2023-08-04 11:21] LABS: Alanine Aminotransferase 22 U/L (0-40); Albumin Level 3.7 g/dL (3.5-5.0); Alkaline Phosphatase 71 U/L (39-117); Anion Gap 11 (12-20); Aspartate Amino Transferase 24 U/L (5-37); Bilirubin Total 0.3 mg/dL (0.0-1.0); Blood Urea Nitrogen 17 mg/dL (9-16); Calcium 9.8 mg/dL (8.4-10.2); Carbon Dioxide 28 mmol/L (22-29); Chloride 107 mmol/L (96-108); Cholesterol 136 mg/dL (<200); Estimated Glomerular Filt Rate > 60; Glucose Fasting 87 mg/dL (60-99); HDL Cholesterol 42 mg/dL (>40); LDL Cholesterol Calculated 73 mg/dL (<100); Potassium 4.8 mmol/L (3.3-5.1); Sodium 141 mmol/L (135-145); Triglycerides 109 mg/dL (<150)
== END 2023-08-04 06:43 | disposition home or self-care (01) ==
LOC: HO.HMGCLDS 06:42
PROVIDERS: PCP Internal Medicine; Visit Provider Internal Medicine
DX: I10 Essential (primary) hypertension (principal); E78.5 Hyperlipidemia, unspecified; R73.9 Hyperglycemia, unspecified
CPT/HCPCS: 36415; 80053; 80061; 83036

== ENCOUNTER 2023-08-13 12:45 | Outpatient (AMB) | payer BC, SELFPAY ==
[2023-08-13 12:47] VITALS: BP 126/78; PULSE 100; O2SAT 97; BMI 26.1
--- NOTE | 2023-08-13 12:47 | MHC.PC.OV ---
Vital Signs 08/13/23 12:47 Height 5 ft 8 in Weight 172 lb BMI 26.1 BP 126/78 Blood Pressure Location Lt brachial Position Sitting Pulse 100 Pulse Source Pulse Oximeter Pulse Oximetry (%) 97 Oxygen Delivery Method Room Air Intake Visit Reasons: PE Intake Note: Pt is here today for PE. Allergies No Known Allergies Allergy (Verified 08/13/23 13:00) Medication List - Last Reconciled 08/13/23 by Parris Devi MD atorvastatin 40 mg PO DAILY bupropion HCl 150 mg PO DAILY fenofibrate 160 mg PO DAILY fluticasone propionate 50 mcg/actuation (Allergy Relief (fluticasone)) 1 spray intranasal DAILY ibuprofen 600 mg PO Q8H PRN metoprolol succinate ER 150 mg (1.5 x 100 mg) PO DAILY omeprazole 20 mg PO QAM Tobacco use date assessed: 08/13/23 Fall risk assessment: No Falls in past year Last assessed Fall Risk: 08/13/23 Dental Screening Dental Screen Date: 08/13/23 Did you have a dental visit in the last 12 months?: Yes Did you have a dental problem in the last 6 months where you did not have access to dental care?: No Was dental information given to patient?: Patient has dentist HPI PE HPI Details Patient presents for physical. He complains of bilateral lower extremity pain in the calf area after walking longer distance getting worse over last few months. [facility] Medical History Hoarseness Personal history of nicotine dependence Renal cyst, acquired, right Colonoscopy refused Tobacco dependence Hyperlipidemia Hip pain, bilateral Chronic right flank pain Complex renal cyst Chronic anxiety Hypertension Surgical History History of left knee surgery History of colonoscopy Family History Father No problems noted. Mother Stroke Social History Housing: House Alcohol intake: current Alcohol intake frequency: holidays/special occasions only Alcohol type: beer Patient Tobacco Use Status: Current everyday Tobacco user Tobacco use type: Cigarette Cigarettes Per Day: 15 Years Smoked: 35, onset 23, 3/4ppd x 35yrs, 25+PYH e-Cigarette/Vaping Use: Never Used Current occupational status: employed Cognitive needs: No Hearing needs: No Vision needs: Yes Questionnaire PHQ-9 Over the last 2 weeks, how often have you been bothered by any of the following problems? 26454 - PHQ-9 Billing: Patient declined-do not bill Source: Developed by Drs. Mir Barros, Stephanie Greene, Rashad Avila and colleagues, with an educational alyssa from [employer]. Thrive Questionnaire Date Thrive assessed: 08/13/23 I am a: Patient What is your living situation today?: I choose not to answer this question Within the past 12 months, did the food you bought not last and you didn't have the money to get more?: I choose not to answer this question Within the past 12 months, did you worry whether your food would run out before you got money to buy more?: I choose not to answer this question Do you have trouble paying for medicines?: I choose not to answer this question Do you have trouble getting transportation to medical appointments?: I choose not to answer this question Do you have trouble paying your heating and electricity bill?: I choose not to answer this question Do you have trouble taking care of your child, family member or friend?: I choose not to answer this question Do you have trouble with day-to-day activities such as bathing, preparing meals, shopping, managing finances, etc.?: I choose not to answer this question Are you currently unemployed and looking for a job?: I choose not to answer this question Are you interested in more education?: I choose not to answer this question Currently or been in a relationship where the following occur: I choose not to answer this question THRIVE Score: 0 EDITH-7 AMB Questionnaire EDITH-7 Date EDITH - 7 assessed: 08/13/23 Source: Developed by Drs. Mir Barros, Stephanie Greene, Rashad Avila and colleagues, with an educational alyssa from [employer]. EDITH-7 Assessment Billing EDITH-7 Assessment Tool: pt declined-do not bill Review of Systems Const All systems reviewed & are unremarkable except as noted in HPI and below Reports no additional complaints Eyes Reports no additional complaints ENT Reports no additional complaints Card Reports no additional complaints Resp Reports no additional complaints GI Reports no additional complaints Reports no additional complaints Physical exam (Primary Care) Vital Signs: Last Vital Signs Pulse 100 08/13/23 12:47 BP 126/78 08/13/23 12:47 Pulse Ox 97 08/13/23 12:47 Oxygen Delivery Method Room Air 08/13/23 12:47 BMI result Body Mass Index 26.1 Tobacco/Smoking Status: Tobacco use Status Tobacco use date assessed 08/13/23 08/13/23 13:03 Patient Tobacco Use Status Current everyday Tobacco 08/13/23 12:47 Tobacco use type Cigarette 08/13/23 12:47 e-Cigarette/Vaping Use Never Used 08/13/23 12:47 Thrive Assessment: Date of Thrive Assessment Date Thrive assessed 08/13/23 08/13/23 13:03 Currently or been in a relationship where the following occur: I choose not to answer this question Const General: no acute distress HENMT Mouth: Normal oral and palatal mucosa present Chest Chest palpation & inspection: normal inspection of the chest Resp Effort & Inspection: normal respiratory effort Auscultation: clear to auscultation bilaterally Cardio Rhythm: regular rhythm Heart sounds: S1 normal heart sound present and S2 normal heart sound present GI Inspection: Yes normal to inspection Palpation (GI): Soft to palpation Percussion: Yes normal to percussion Auscultation: normal bowel sounds Assessment and Plan Assessment & Plan (1) Tobacco dependence: Code(s): F17.200 - Nicotine dependence, unspecified, uncomplicated Plan: Tobacco quitting discussed with the patient. Patient missed his appointment for lung cancer screening CT, and will reschedule (2) Anxiety: Code(s): F41.9 - Anxiety disorder, unspecified Plan: Continue bupropion (3) Hypertension: Code(s): I10 - Essential (primary) hypertension Plan: Continue metoprolol (4) Annual physical exam: Code(s): Z00.00 - Encounter for general adult medical examination without abnormal findings Plan: Well-balanced diet regular exercise tobacco quitting discussed with the patient (5) Hyperlipidemia: Code(s): E78.5 - Hyperlipidemia, unspecified Plan: Continue statin (6) Claudication: Code(s): I73.9 - Peripheral vascular disease, unspecified Plan: Obtain arterial Doppler to evaluate for peripheral vascular disease (7) Personal history of nicotine dependence: Comment: (Current smoker, onset 23, 3/4ppd x 37yrs, 25+PYH) Code(s): Z87.891 - Personal history of nicotine dependence Orders: Orders CT lung screening Today F17.200 - Nicotine dependence, unspecified, uncomplicated US arterial duplex LE BI Today I73.9 - Peripheral vascular disease, unspecified Referrals Cologuard Test Z12.11 - Encounter for screening for malignant neoplasm of colon, Z12.12 - Encounter for screening for malignant neoplasm of rectum Medications: Discontinued amlodipine Discontinued Reason: Doctor's Order 10 mg PO DAILY 90 tabs 3RF Coding Level of Care Code Est Pt Prev Care 40-64y(30697) Diagnoses Tobacco dependence F17.200 Anxiety F41.9 Hypertension I10 Annual physical exam Z00.00 Hyperlipidemia E78.5 Claudication I73.9 Personal history of nicotine dependence Z87.891
== END 2023-08-13 13:34 | disposition home or self-care (01) ==
PROVIDERS: PCP Internal Medicine; Visit Provider Internal Medicine
DX: Z00.00 Encounter for general adult medical examination without abnormal findings (principal); I73.9 Peripheral vascular disease, unspecified; F17.200 Nicotine dependence, unspecified, uncomplicated; F41.9 Anxiety disorder, unspecified; I10 Essential (primary) hypertension; E78.5 Hyperlipidemia, unspecified; Z87.891 Personal history of nicotine dependence
CPT/HCPCS: 99396

== ENCOUNTER 2023-09-12 14:16 | Outpatient (REF) | payer BC, SELFPAY ==
--- NOTE | ~2023-09-12 | US_ITS ---
EXAMINATION: Bilateral LOWER EXTREMITY DUPLEX CLINICAL INFORMATION: Peripheral vascular disease COMPARISON: Arterial duplex and ankle brachial indices at 09/19 2018 TECHNIQUE: Real-time ultrasound and Doppler techniques (integrating B-mode 2-D vascular images, Doppler spectral analysis and color flow Doppler imaging) were utilized to interrogate the lower extremities. FINDINGS: RIGHT LEG: Common femoral artery: 95 cm/s, triphasic Profunda femoris artery: 155 cm/s, triphasic Superficial femoral artery (proximal): 69 cm/s, monophasic Superficial femoral artery (mid): 88 cm/s, monophasic Superficial femoral artery (distal): 64 cm/s, monophasic Popliteal artery: 57 cm/s, monophasic Anterior tibial artery: 46 cm/s, monophasic Peroneal artery: 19 cm/s, monophasic Posterior tibial artery: 49 cm/s, monophasic Dorsalis pedis artery: 9 cm/s, monophasic LEFT LEG: Common femoral artery: 97 cm/s, triphasic Profunda femoris artery: 117 cm/s, triphasic Superficial femoral artery (proximal): 125 cm/s, triphasic Superficial femoral artery (mid): 93 cm/s, triphasic Superficial femoral artery (distal): 104 cm/s, triphasic Popliteal artery: 64 cm/s, triphasic Anterior tibial artery: 93 cm/s, triphasic Peroneal artery: 46 cm/s, triphasic Posterior tibial artery: 89 cm/s, triphasic Dorsalis pedis artery: 41 cm/s, triphasic US/US arterial duplex LE BI IMPRESSION: Atherosclerotic plaque throughout the right lower extremity arterial system resulting in monophasic waveforms and decreased peak systolic velocities. These findings are consistent with multilevel peripheral vascular disease on the right.
== END 2023-09-12 14:17 | disposition home or self-care (01) ==
LOC: HO.US 14:16
PROVIDERS: PCP Internal Medicine; Visit Provider Internal Medicine
DX: I73.9 Peripheral vascular disease, unspecified (principal)
CPT/HCPCS: 93925

== ENCOUNTER 2023-11-08 15:21 | Outpatient (AMB) | payer BC, SELFPAY ==
--- NOTE | 2023-11-08 15:36 | MHC.OFFVIS ---
Intake Visit Reasons: NASEEM Devi Referred Intake Note: New patient presents for PVD, had arterial done on 09/12/23. He does not have any pain , swelling or weakness but does mention foot pain that happens occasionally. 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 Reports that he can barely walk a block in his right calf starts cramping. He would brought this up with his primary care doctor and was subsequently referred to us with noninvasive arterial testing. Upon discussion with him he has a nondiabetic and smokes nearly a pack a day daily. [facility] Medical History Hoarseness Personal history of nicotine dependence Renal cyst, acquired, right Colonoscopy refused Tobacco dependence Hyperlipidemia Hip pain, bilateral Chronic right flank pain Complex renal cyst Chronic anxiety Hypertension Surgical History History of left knee surgery History of colonoscopy Family History Father No problems noted. Mother Stroke Social History Housing: House Alcohol intake: current Alcohol intake frequency: holidays/special occasions only Alcohol type: beer Patient Tobacco Use Status: Current everyday Tobacco user Tobacco use type: Cigarette Cigarettes Per Day: 15 Years Smoked: 35, onset 23, 3/4ppd x 35yrs, 25+PYH e-Cigarette/Vaping Use: Never Used Current occupational status: employed Cognitive needs: No Hearing needs: No Vision needs: Yes Review of Systems Const All systems reviewed & are unremarkable except as noted in HPI and below Reports no additional complaints ENT Reports Normal hearing present Card Denies chest pain, Denies chest pain at rest, Denies chest pain with activity and Denies pedal edema Resp Denies cough GI Denies abdominal pain Musc Denies abnormal gait, Denies muscle cramps and Denies radiating pain into limb Skin/Breast Denies skin ulcer and Denies wounds Neuro Reports Normal hearing present and Denies abnormal gait Psych Reports no additional complaints Physical Exam Const General: cooperative, healthy appearing and comfortable Orientation/consciousness: oriented to person, oriented to place and oriented to time HEENT Head: Yes normal to inspection Neck Neck: Yes normal visual inspection Carotids: no bruits Chest Chest palpation & inspection: normal inspection of the chest Resp Effort & Inspection: normal respiratory effort and able to speak in complete sentences Auscultation: clear to auscultation bilaterally, no crackles, no rales, no rhonchi and no wheezes Cardio Other: Right DP signals Rate: regular rate Rhythm: regular rhythm Heart sounds: S1 normal heart sound present and S2 normal heart sound present Bruits: no carotid bruits Peripheral pulses: Peripheral pulses 2+ throughout GI Inspection: Yes normal to inspection Skin Wounds: no wounds Hair: normal Neuro General: oriented to person, oriented to place and oriented to time Cranial nerves: Yes CN's II-XII intact bilaterally and Yes Normal hearing present Cognition (Neuro): normal cognition Motor exam (neuro): 5/5 motor strength present throughout Extrem Other: venous exam: No significant superficial varicosities or spider telangiectasias, minimal edema General: No clubbing, No cyanosis and No edema Psych Appearance: grossly normal Mental Status: mental status grossly normal Speech and movement: Normal speech and movement present Results Reviewed Results Reviewed: Noninvasive arterial testing dated 09/12/2023 demonstrates monophasic flow SFA on down. This is on the right side. Left side appears more stable. Concern of right SFA disease. Written report and images were reviewed. Assessment & Plan Assessment & Plan (1) PAD (peripheral artery disease): Code(s): I73.9 - Peripheral vascular disease, unspecified Category: Medical Plan: Patient notes leg pain when walking distances. I have discussed the pathophysiology of peripheral vascular disease with the patient. I have also discussed risk factor modification. I have reviewed the patient's arterial testing which reveals right SFA disease. the patient would benefit from a right leg endovascular peripheral angiogram with possible angioplasty, stent, and/or atherectomy. This has been discussed in detail with the patient along with risks, benefits, and complications. This includes but is not limited to bleeding, infection, heart attack, need for emergent surgical repair, limb ischemia, blood vessel damage, bleeding, puncture, kidney injury, bruising, allergic reaction, and skin reaction. The patient demonstrates a clear understanding. We will schedule for the next appropriate time. Thank you for allowing us to assist in this patient's care. Coding Level of Care Code New Pt Level 4 (10530) Diagnoses PAD (peripheral artery disease) I73.9
== END 2023-11-08 16:05 | disposition home or self-care (01) ==
PROVIDERS: PCP Internal Medicine; Visit Provider Surgery Vascular Surgery
DX: I73.9 Peripheral vascular disease, unspecified (principal)
CPT/HCPCS: 99204

== ENCOUNTER → 2023-11-08 15:21 | Outpatient (BNVA) | payer BC, SELFPAY | PROVIDERS: PCP Internal Medicine; Visit Provider Surgery Vascular Surgery ==

== ENCOUNTER 2023-12-12 07:32 | Day surgery (SDC) | payer BC, SELFPAY ==
[2023-12-12] VITALS (8 sets, daily range): BP systolic 119–144; BP diastolic 59–89; PULSE 84–89; RESP 16–18; TEMP 36.4–36.9; O2SAT 94–96; BMI 25.4
[2023-12-12] MEDS: 0.9 % Sodium Chloride 1,000 ML 100 ML IVCONT (08:24)
--- NOTE | 2023-12-12 09:19 | PC.NURSE ---
Lab called at 0815 for pt lab draw prior to IR procedure.
[2023-12-12 10:24] LABS: Basophils Percent Auto 0.5 % (0-2); Eosinophils Absolute Auto 0.2 X10*3/uL (0.0-0.4); Hematocrit 43.9 % (42.0-52.0); Hemoglobin 15.1 g/dl (14.0-18.0); Imm Gran Abs Auto 0.02 X10*3/uL (0.00-0.03); Imm Gran Pct Auto 0.3 % (0.0-0.4); Lymphocytes Absolute Auto 1.8 X10*3/uL (1.2-4.9); Lymphocytes Percent Auto 26.6 % (20-40); MANUAL DIFF FLAG NO; Mean Corpuscular HGB Conc 34.4 g/dl (31.0-36.0); Mean Corpuscular Hemoglobin 30.9 pg (27.0-33.0); Mean Corpuscular Volume 89.8 fL (80.0-98.0); Mean Platelet Volume 10.6 fL (9.4-12.4); Monocytes Absolute Auto 0.6 X10*3/uL (0.1-1.2); Monocytes Percent Auto 9.4 % (2-11); Neutrophils Percent Auto 60.2 % (45-73); Platelet Count 249 X10*3/uL (160-400); Red Blood Count 4.89 X10*6/uL (4.60-5.80); Red Cell Distribution Width 14.9 % (11.0-16.0); White Blood Count 6.6 X10*3/uL (4.8-10.8)
[2023-12-12 10:40] LABS: Blood Urea Nitrogen 16 mg/dL (9-16); Creatinine Clr Calc Pharmacy 90.1; Estimated Glomerular Filt Rate > 60
--- NOTE | 2023-12-12 12:16 | W.PM.OPN ---
Operative Note Operative Note Date of Service: 12/12/23 Narrative: Angiogram report from [facility] Preoperative diagnosis: Atherosclerosis of right lower extremity with activity limiting claudication Postoperative diagnosis: Same Procedure: 1. Ultrasound-guided left common femoral access 2. Aortogram with right lower extremity runoff 3. Right SFA plasty Surgeon:Radames Rausch M.D., FACS, RPVI Non Destructive Evaluation Technician:None Anesthesia: Local with moderate conscious sedation. Total intraservice moderate sedation time was 68 minutes. I monitored the patient's level of consciousness and physiologic status continuously throughout the procedure. Specimens:none Drains:none Estimated blood loss: Less than 10 ml Implant: Medtronic Impact DCB 6 x 120 and 5 x 40 Indications: 63-year-old gentleman with history of claudication. Stenosis noted in SFA on ultrasound. He now presents for endovascular intervention The patient has signed the informed consent after reviewing risks, complications, benefits, and alternatives previously discussed with the patient. The patient was given the opportunity to ask any additional questions or voice any concerns. All questions were answered to the patient's satisfaction. Procedure in detail: Patient was brought to the angiography suite prior to which a time-out was called for patient identification and site verification. Bilateral groins were prepped and draped in the standard surgical fashion. Under ultrasound guidance left common femoral was punctured with micro puncture needle and wire. Subsequently a precision 4 Czech sheath was then placed. Bentson wire was advanced to the level of the aorta. 4 Czech Flush catheter was brought up and parked at the level of the renal arteries. Aortogram was then undertaken. Catheter was brought down to the level of the iliac bifurcation. Iliacs were subsequently imaged. Catheter was then brought in up and over to the right side SFA. Runoff study was then undertaken. It was noted that he had a distal SFA total occlusion with immediate reconstitution. We then exchanged out for an 035 glidewire Advantage. We administered 5000 units of systemic heparin. Up and over 6 Czech sheath was then placed. Once in position we then used a trail Blazer catheter to come down into the distal SFA. We used the 035 wire to traverse the try to traverse this lesion. Multiple some intimal planes were obtained. We then exchanged out for an 014 wire. And subsequently an M wire was used and we were finally able to traverse this total occlusion. We did confirmed true lumen by instilling contrast through a catheter. Once this was all accomplished we then plasty this entire region with a 6 x 40 balloon with multiple insufflations. Once this was done we 1st did a distal SFA plasty with a drug coated balloon of 6 x 120. This was brought into position in under 3 minutes and insufflated for a total of 3 minutes in duration. Once this was accomplished we did notice a residual stenosis of greater than 50% distal to that. We then brought in a 5 x 40 balloon. This was brought into position in under 3 minutes and once again insufflated for 3 minutes in duration. Once this was all accomplished catheter wire sheath was brought back to the ipsilateral side. We exchanged out for short 6 Czech sheath. Through this we instilled contrast to assure appropriate puncture. A CELT closure device was then used. Adequate hemostasis was achieved. Patient tolerated the procedure well. Returned to recovery with stable vitals. Interpretation of films: 1. Ultrasound demonstrates appropriate femoral access site. Vessel was patent with minimal stenosis. Needle entry was visualized. Image of ultrasound was saved. 2. Aortogram demonstrates appropriate caliber aorta. Minimal disease. Appropriate take-off of the renals. 3. Iliac images demonstrate no significant disease 4. Right Leg Common femoral artery: No significant disease Profundus Femoris: No significant disease Superficial femoral artery: Distal SFA total occlusion with reconstitution at the above knee popliteal Popliteal artery (p1,p2,p3): No significant disease Anterior tibial artery: No significant disease Peroneal artery: No significant disease Posterior tibial artery: No significant disease Dorsalis pedis/plantar arch: Incomplete Conclusion: 1. Successful plasty of right SFA 2. Anticoagulation status: 6 months of aspirin and Plavix This note is constructed using voice recognition software. While every effort has been made to ensure accuracy, van driver errors may have been included. Thank you for allowing me to participate in the care of your patient. Yours sincerely, Radames Rausch MD, FACS, R.P.V.I.
[2023-12-12] MEDS: Aspirin 325 MG TABLET 650 MG PO (13:17)
[2023-12-12] MEDS: Clopidogrel Bisulfate 300 MG TABLET PO (13:17)
== END 2023-12-12 14:34 | disposition home or self-care (01) ==
PROVIDERS: PCP Internal Medicine; Visit Provider Surgery Vascular Surgery
DX: I70.212 Atherosclerosis of native arteries of extremities with intermittent claudication, left leg (principal); N28.1 Cyst of kidney, acquired; I10 Essential (primary) hypertension; E78.5 Hyperlipidemia, unspecified; F41.8 Other specified anxiety disorders; Z79.899 Other long term (current) drug therapy; F17.210 Nicotine dependence, cigarettes, uncomplicated
CPT/HCPCS: 36415; 37224; 75630; 76937; 82565; 84520; 85025; 99152; 99153; J1644; J2250; J2310; J3010; Q9967

== ENCOUNTER → 2023-12-12 07:32 | Outpatient (BNV) | payer BC, SELFPAY | PROVIDERS: PCP Internal Medicine; Visit Provider Surgery Vascular Surgery | DX: I70.211 Atherosclerosis of native arteries of extremities with intermittent claudication, right leg (principal) | CPT/HCPCS: 37224; 75625; 75710; 76937; 99152 ==

== ENCOUNTER 2024-01-30 06:01 | Outpatient (REF) | payer BC, SELFPAY ==
[2024-01-30 10:33] LABS: Estimated Average Glucose 117 mg/dL; Hemoglobin A1c % 5.7 % (<6.0)
[2024-01-30 10:47] LABS: Alanine Aminotransferase 23 U/L (0-40); Albumin Level 3.9 g/dL (3.5-5.0); Alkaline Phosphatase 78 U/L (39-117); Anion Gap 12 (12-20); Aspartate Amino Transferase 24 U/L (5-37); Bilirubin Total 0.4 mg/dL (0.0-1.0); Blood Urea Nitrogen 16 mg/dL (9-16); Calcium 9.4 mg/dL (8.4-10.2); Carbon Dioxide 26 mmol/L (22-29); Chloride 108 mmol/L (96-108); Cholesterol 148 mg/dL (<200); Estimated Glomerular Filt Rate > 60; Glucose Fasting 95 mg/dL (60-99); HDL Cholesterol 43 mg/dL (>40); LDL Cholesterol Calculated 76 mg/dL (<100); Potassium 4.4 mmol/L (3.3-5.1); Sodium 142 mmol/L (135-145); Total Protein 6.9 g/dL (6.5-8.0); Triglycerides 149 mg/dL (<150)
[2024-01-30 11:10] LABS: Folate 10.8 ng/mL (> or = 4.0); Vitamin B12 272 pg/mL (200-900)
[2024-02-02 09:33] LABS: Methylmalonic Acid 195 nmol/L (69-390)
== END 2024-01-30 06:02 | disposition home or self-care (01) ==
LOC: HO.HMGCLDS 06:01
PROVIDERS: PCP Internal Medicine; Visit Provider Internal Medicine
DX: Z00.00 Encounter for general adult medical examination without abnormal findings (principal); R73.9 Hyperglycemia, unspecified; I10 Essential (primary) hypertension; Z12.5 Encounter for screening for malignant neoplasm of prostate
CPT/HCPCS: 36415; 80053; 80061; 82607; 82746; 83036; 83921; 84153

== ENCOUNTER 2024-01-31 11:40 | Outpatient (AMB) | payer BC, SELFPAY ==
[2024-01-31 11:51] VITALS: BP 136/70; PULSE 90; O2SAT 97; BMI 26.1
--- NOTE | 2024-01-31 11:51 | MHC.PC.OV ---
Vital Signs 01/31/24 11:51 Height 5 ft 8 in Weight 172 lb BMI 26.1 BP 136/70 Blood Pressure Location Rt brachial Position Sitting Pulse 90 Pulse Source Pulse Oximeter Pulse Oximetry (%) 97 Oxygen Delivery Method Room Air Intake Visit Reasons: 6 month f/u Intake Note: Pt is here today for a follow up visit. Allergies No Known Allergies Allergy (Verified 11/08/23 15:39) Medication List - Last Reconciled 01/31/24 by Parris Devi MD atorvastatin 40 mg PO DAILY bupropion HCl SR 150 mg PO DAILY clopidogrel (Plavix) 75 mg PO DAILY fenofibrate 160 mg PO DAILY fluticasone propionate 50 mcg/actuation (Allergy Relief (fluticasone)) 1 spray intranasal DAILY ibuprofen 600 mg PO Q8H PRN metoprolol succinate ER 150 mg (1.5 x 100 mg) PO DAILY omeprazole 20 mg PO QAM thiamine HCl (vitamin B1) 100 mg PO DAILY Tobacco use date assessed: 08/13/23 Fall risk assessment: No Falls in past year Last assessed Fall Risk: 01/31/24 Dental Screening Dental Screen Date: 01/31/24 Did you have a dental visit in the last 12 months?: Yes Did you have a dental problem in the last 6 months where you did not have access to dental care?: No Was dental information given to patient?: Patient has dentist HPI 6 month f/u HPI Details Patient presents for the follow-up with his . His is concerned about patient's declining memory episodes of uncontrolled anger and weakness sleep apnea at night. Patient reports drinking 2 beers every day but patient's is concerned about the patient abusing alcohol. He continues to smoke a half a pack a day. Patient complains of chronic postnasal drip and sore throat. He had negative ENT evaluation. Patient has been using fluticasone nasal spray enteric Claritin for the few days. Hypertension hyperlipidemia are controlled on current medications. [facility] Medical History Hoarseness Personal history of nicotine dependence Renal cyst, acquired, right Colonoscopy refused Tobacco dependence Hyperlipidemia Hip pain, bilateral Chronic right flank pain Complex renal cyst Chronic anxiety Hypertension Surgical History History of left knee surgery History of colonoscopy Family History Father No problems noted. Mother Stroke Social History Housing: House Alcohol intake: current Alcohol intake frequency: holidays/special occasions only Alcohol type: beer Patient Tobacco Use Status: Current everyday Tobacco user Tobacco use type: Cigarette Cigarettes Per Day: 15 Years Smoked: 35, onset 23, 3/4ppd x 35yrs, 25+PYH e-Cigarette/Vaping Use: Never Used service: No Current occupational status: employed Cognitive needs: No Hearing needs: No Vision needs: Yes Questionnaire Thrive Questionnaire Date Thrive assessed: 08/13/23 AUDIT C Alcohol Use Questionnaire (AUDIT-C) 1. How often do you have a drink containing alcohol?: Never 3. How often do you have six or more drinks on one occasion?: Never Total Score: 0 EDITH-7 AMB Questionnaire EDITH-7 Date EDITH - 7 assessed: 08/13/23 Source: Developed by Drs. Mir Barros, Stephanie Greene, Rashad Avila and colleagues, with an educational alyssa from [employer]. Review of Systems Const All systems reviewed & are unremarkable except as noted in HPI and below Eyes Reports no additional complaints Card Reports no additional complaints Resp Reports no additional complaints GI Reports no additional complaints Reports no additional complaints Physical exam (Primary Care) Vital Signs: Last Vital Signs Pulse 90 01/31/24 11:51 BP 136/70 01/31/24 11:51 Pulse Ox 97 01/31/24 11:51 Oxygen Delivery Method Room Air 01/31/24 11:51 BMI result Body Mass Index 26.1 Tobacco/Smoking Status: Tobacco use Status Tobacco use date assessed 08/13/23 01/31/24 11:53 Patient Tobacco Use Status Current everyday Tobacco 01/31/24 11:53 Tobacco use type Cigarette 01/31/24 11:53 e-Cigarette/Vaping Use Never Used 01/31/24 11:53 Thrive Assessment: Date of Thrive Assessment Date Thrive assessed 08/13/23 01/31/24 11:53 Const General: no acute distress HENMT Head: Yes normal to inspection Mouth: Normal oral and palatal mucosa present Eyes General: appearance normal, both eyes and all related structures Neck Neck: Yes supple Resp Effort & Inspection: normal respiratory effort Auscultation: diminished lung sounds Cardio Rhythm: regular rhythm Heart sounds: S1 normal heart sound present and S2 normal heart sound present GI Inspection: Yes normal to inspection Palpation (GI): Soft to palpation Percussion: Yes normal to percussion Auscultation: normal bowel sounds Assessment and Plan Assessment & Plan (1) COPD (chronic obstructive pulmonary disease): Code(s): J44.9 - Chronic obstructive pulmonary disease, unspecified Plan: Check PFT (2) Personal history of nicotine dependence: Comment: (Current smoker, onset 23, 3/4ppd x 35yrs, 25+PYH) Code(s): Z87.891 - Personal history of nicotine dependence Plan: Tobacco quitting discussed with the patient referred to lung cancer screening program (3) Apnea: Code(s): R06.81 - Apnea, not elsewhere classified Plan: Check sleep study for sleep apnea (4) Memory loss: Code(s): R41.3 - Other amnesia Plan: Obtain CT of the brain, stopping drinking alcohol thiamine 100 mg are prescribed, increase physical activity and well-balanced diet discussed with the patient (5) Cough: Code(s): R05.9 - Cough, unspecified Plan: Check chest x-ray PFTs restart Claritin and continue Flonase nasal spray for chronic postnasal drip Orders: Orders PFT pulmonary function test Today J44.9 - Chronic obstructive pulmonary disease, unspecified Vitamin D 25-OH Total Today R41.3 - Other amnesia Vitamin B1 Today R41.3 - Other amnesia RT home sleep study Today R06.81 - Apnea, not elsewhere classified CT head/brain wo IV con Today R41.3 - Other amnesia Referrals Thoracic/General Surgery Referral Z87.891 - Personal history of nicotine dependence Medications: New bupropion HCl XL 300 mg PO QAM 90 tabs 0RF thiamine HCl (vitamin B1) 100 mg PO DAILY 90 tabs 0RF loratadine (Claritin) 10 mg PO DAILY 90 tabs 0RF Changed From omeprazole 20 mg PO QAM 90 caps 3RF To omeprazole 20 mg PO QPM 90 caps 3RF Discontinued bupropion HCl SR Discontinued Reason: Doctor's Order 150 mg PO DAILY 90 tabs 3RF Coding Level of Care Code Est Pt Level 4 (55235) Diagnoses COPD (chronic obstructive pulmonary disease) J44.9 Personal history of nicotine dependence Z87.891 Apnea R06.81 Memory loss R41.3 Cough R05.9
== END 2024-01-31 13:01 | disposition home or self-care (01) ==
PROVIDERS: PCP Internal Medicine; Visit Provider Internal Medicine
DX: J44.9 Chronic obstructive pulmonary disease, unspecified (principal); Z87.891 Personal history of nicotine dependence; R06.81 Apnea, not elsewhere classified; R41.3 Other amnesia; R05.9 Cough, unspecified
CPT/HCPCS: 99214

== ENCOUNTER 2024-01-31 13:00 | Outpatient (REF) | payer BC, SELFPAY ==
--- NOTE | ~2024-01-31 | XR_ITS ---
EXAMINATION: XR CHEST 2 VIEW CLINICAL INFORMATION: Cough COMPARISON: 02/08/2018 TECHNIQUE: PA and lateral views of the chest obtained. FINDINGS: The lungs are clear. There are no pleural effusions. The cardiomediastinal silhouette is normal. XR/XR chest 2V IMPRESSION: No acute cardiopulmonary disease. No significant change.
== END 2024-01-31 13:01 | disposition home or self-care (01) ==
LOC: HO.HMGCX 13:00
PROVIDERS: PCP Internal Medicine; Visit Provider Internal Medicine
DX: R05.9 Cough, unspecified (principal)
CPT/HCPCS: 71046

== ENCOUNTER 2024-02-28 14:44 | Outpatient (REF) | payer BC, SELFPAY ==
--- NOTE | ~2024-02-28 | CT_ITS ---
EXAMINATION CT HEAD WITHOUT CONTRAST CLINICAL INFORMATION: Amnesia COMPARISON: None TECHNIQUE: CT of the head was performed without intravenous contrast. Reformatted axial, coronal, and sagittal images were reviewed. This CT examination was performed using dose optimization techniques as appropriate, variously including the following: *Automated exposure control *Adjustment of mA and/or kV according to patient size (this includes techniques or standardized protocols for targeted exams where dose is matched to indication/reason for exam; i.e. extremities or head) *Use of iterative reconstruction technique DLP: 756 mGy-cm FINDINGS: No intracranial hemorrhage, extra-axial fluid collection, or midline shift is identified. Mild periventricular white matter hypoattenuation consistent with minimal chronic small vessel ischemic disease, most pronounced on the right. Leonard-white matter differentiation is preserved. Ventricles are mildly prominent when compared to the sulci. Basal cisterns are within normal limits. Paranasal sinuses are clear. Mastoid air cells and middle ear cavities are clear. No acute calvarial fractures. CT/CT head/brain wo IV con IMPRESSION: 1. No acute intracranial abnormality. 2. Subtle ventriculo-sulcal disproportion of unclear significance. Consider MRI brain without contrast for further evaluation. 3. Trace chronic small vessel ischemic disease. Electronically signed by: Forrest Pop DO 03/05/2024 12:03 PM EDT
== END 2024-02-28 14:45 | disposition home or self-care (01) ==
LOC: HO.CT 14:44
PROVIDERS: PCP Internal Medicine; Visit Provider Internal Medicine
DX: R41.3 Other amnesia (principal)
CPT/HCPCS: 70450

== ENCOUNTER → 2024-03-18 15:55 | Outpatient (REF) | payer BC, SELFPAY | LOC: HO.SL 15:55 | PROVIDERS: PCP Internal Medicine; Visit Provider Internal Medicine | DX: R06.81 Apnea, not elsewhere classified (principal) | CPT/HCPCS: 95806 ==

== ENCOUNTER 2024-05-07 15:54 | Outpatient (REF) | payer BC, SELFPAY ==
--- NOTE | 2024-05-07 15:58 | PFT_ITS ---
Flows: FEV1: 89 % of predicted at 2.81 L FVC: 90 % of predicted at 3.71 L FEV1/FVC: 76 % Bronchodilator response: Absent Volumes: Total lung capacity: 89 % of predicted at 5.96 L Residual volume: 81 % of predicted at 1.82 L Slow vital capacity: 92 % of predicted at 4.14 L Expiratory reserve volume: 88 % of predicted at 1.01 L Diffusion capacity: Normal Impression: No obstructive or restrictive ventilatory defect. No bronchodilator response. Normal pulmonary function test. MTDD
== END 2024-05-07 15:55 | disposition home or self-care (01) ==
LOC: HO.RESP 15:54
PROVIDERS: PCP Internal Medicine; Visit Provider Internal Medicine
DX: J44.9 Chronic obstructive pulmonary disease, unspecified (principal)
CPT/HCPCS: 94010; 94640; 94727; 94729

== ENCOUNTER → 2024-05-07 15:58 | Outpatient (BNV) | payer BC, SELFPAY | PROVIDERS: PCP Internal Medicine; Visit Provider Internal Medicine Pulmonary Disease | DX: J44.9 Chronic obstructive pulmonary disease, unspecified (principal) | CPT/HCPCS: 94060; 94727; 94729 ==

== ENCOUNTER 2024-08-23 07:21 | Outpatient (REF) | payer BC, SELFPAY ==
[2024-08-23 14:31] LABS: Vitamin D 25-OH Total 21.2 ng/mL (>30)
[2024-08-25 14:51] LABS: Alanine Aminotransferase 35 U/L (0-40); Albumin Level 3.7 g/dL (3.5-5.0); Alkaline Phosphatase 66 U/L (39-117); Anion Gap 12 (12-20); Aspartate Amino Transferase 34 U/L (5-37); Bilirubin Total 0.4 mg/dL (0.0-1.0); Blood Urea Nitrogen 13 mg/dL (9-16); Calcium 9.1 mg/dL (8.4-10.2); Carbon Dioxide 25 mmol/L (22-29); Chloride 112 mmol/L (96-108); Cholesterol 144 mg/dL (<200); Estimated Glomerular Filt Rate > 60; Glucose Fasting 75 mg/dL (60-99); HDL Cholesterol 52 mg/dL (>40); LDL Cholesterol Calculated 68 mg/dL (<100); Potassium 5.1 mmol/L (3.3-5.1); Sodium 144 mmol/L (135-145); Total Protein 6.8 g/dL (6.5-8.0); Triglycerides 121 mg/dL (<150)
[2024-08-31 10:33] LABS: Vitamin B1 11 nmol/L (8-30)
== END 2024-08-23 07:22 | disposition home or self-care (01) ==
LOC: HO.HMGCLDS 07:21
PROVIDERS: PCP Internal Medicine; Visit Provider Internal Medicine
DX: R41.3 Other amnesia (principal); E78.5 Hyperlipidemia, unspecified; I10 Essential (primary) hypertension; R73.9 Hyperglycemia, unspecified; Z13.228 Encounter for screening for other metabolic disorders
CPT/HCPCS: 36415; 80053; 80061; 82306; 84425

== ENCOUNTER 2024-08-25 12:53 | Outpatient (AMB) | payer BC, SELFPAY ==
[2024-08-25 13:07] VITALS: BP 138/76; PULSE 115; RESP 20; TEMP 36.5; O2SAT 96; BMI 26.6
--- NOTE | 2024-08-25 13:07 | A.OFFPC_ITS ---
Vital Signs 08/25/24 13:07 Height 5 ft 8 in Weight 175 lb BMI 26.6 BP 138/76 Blood Pressure Location Lt brachial Position Sitting Respiration 20 Pulse 115 H Pulse Source Pulse Oximeter Temp 97.7 F Temp Source Oral Pulse Oximetry (%) 96 Oxygen Delivery Method Room Air Intake Visit Reasons: Annual PE - see comments Intake Note: Pt is here today for PE. Pt states that he had a elevated BP yesterday 175/80. Pt states that he needs a refill on his medications. Allergies No Known Allergies Allergy (Verified 08/25/24 13:20) Medication List - Last Reconciled 08/25/24 by Parris Devi MD amlodipine 10 mg PO DAILY atorvastatin 40 mg PO DAILY bupropion HCl XL 300 mg PO QAM clopidogrel (Plavix) 75 mg PO DAILY fenofibrate 160 mg PO DAILY fluticasone propionate 50 mcg/actuation (Allergy Relief (fluticasone)) 1 spray intranasal DAILY ibuprofen 600 mg PO Q8H PRN loratadine (Claritin) 10 mg PO DAILY metoprolol succinate ER 150 mg (1.5 x 100 mg) PO DAILY omeprazole 20 mg PO QPM thiamine HCl (vitamin B1) 100 mg PO DAILY umeclidinium-vilanterol 62.5-25 mcg/actuation (Anoro Ellipta) 1 inh inhalation DAILY Tobacco use date assessed: 08/25/24 Fall risk assessment: No Falls in past year Last assessed Fall Risk: 08/25/24 Dental Screening Dental Screen Date: 08/25/24 Did you have a dental visit in the last 12 months?: Yes Did you have a dental problem in the last 6 months where you did not have access to dental care?: No Was dental information given to patient?: Patient has dentist HPI Annual PE - see comments HPI Details Patient presents for physical. She complains of chronic postnasal drip and is established with ENT. Patient was prescribed a nasal spray with some relief [facility] Medical History (Updated 08/25/24 @ 14:34 by Parris Devi MD) Hoarseness Personal history of nicotine dependence Renal cyst, acquired, right Colonoscopy refused Tobacco dependence Hyperlipidemia Hip pain, bilateral Chronic right flank pain Complex renal cyst Chronic anxiety Hypertension Surgical History History of left knee surgery History of colonoscopy Family History Father No problems noted. Mother Stroke Social History Housing: House Alcohol intake: current Alcohol intake frequency: holidays/special occasions only Alcohol type: beer Patient Tobacco Use Status: Current everyday Tobacco user Tobacco use type: Cigarette Cigarettes Per Day: 15 Years Smoked: 35, onset 23, 3/4ppd x 35yrs, 25+PYH e-Cigarette/Vaping Use: Never Used service: No Current occupational status: employed Cognitive needs: No Hearing needs: No Vision needs: Yes Questionnaire PHQ-9 Over the last 2 weeks, how often have you been bothered by any of the following problems? 1. Little interest or pleasure in doing things: not at all 2. Feeling down, depressed, or hopeless: not at all 3. Trouble falling or staying asleep, or sleeping too much: not at all 4. Feeling tired or having little energy: not at all 5. Poor appetite or overeating: not at all 6. Feeling bad about yourself - or that you are a failure or have let yourself or your family down: not at all 7. Trouble concentrating on things, such as reading the newspaper or watching television: not at all 8. Moving or speaking so slowly that other people could have noticed. Or the opposite - being so fidgety or restless that you have been moving around a lot more than usual: not at all 9. Thoughts that you would be better off or of hurting yourself in some way: not at all Total score: 0 Depression Screening Interpretation: Negative Depression Screening Done: Yes 23862 - PHQ-9 Billing: Yes Source: Developed by Drs. Mir Barros, Stephanie Greene, Rashad Avila and colleagues, with an educational alyssa from [employer]. Thrive Questionnaire Date Thrive assessed: 08/25/24 I am a: Patient What is your living situation today?: I have a steady place to live Within the past 12 months, did the food you bought not last and you didn't have the money to get more?: Never true Within the past 12 months, did you worry whether your food would run out before you got money to buy more?: Never true Do you have trouble paying for medicines?: No Do you have trouble getting transportation to medical appointments?: No Do you have trouble paying your heating and electricity bill?: No Do you have trouble taking care of your child, family member or friend?: No Do you have trouble with day-to-day activities such as bathing, preparing meals, shopping, managing finances, etc.?: No Are you currently unemployed and looking for a job?: No Are you interested in more education?: No Please select the resources that you would like help with: None THRIVE Score: 0 AUDIT C Alcohol Use Questionnaire (AUDIT-C) 1. How often do you have a drink containing alcohol?: 2-3 times a week 2. How many drinks containing alcohol do you have on a typical day when you are drinking?: 1 or 2 3. How often do you have six or more drinks on one occasion?: Never Total Score: 3 EDITH-7 AMB Questionnaire EDITH-7 Date EDITH - 7 assessed: 08/25/24 Feeling nervous, anxious, or on edge: 0 = Not at all Not being able to stop or control worryin = Not at all Worrying too much about different things: 0 = Not at all Trouble relaxin = Not at all Being so restless that it is hard to sit still: 0 = Not at all Becoming easily annoyed or irritable: 0 = Not at all Feeling afraid as if something awful might happen: 0 = Not at all Total EDITH-7 score (0-4 normal; 5-9 mild; 10-14 moderate; 15-21 severe): 0 Source: Developed by Drs. Mir Barros, Stephanie Greene, Rashad Avila and colleagues, with an educational alyssa from [employer]. EDIHT-7 Assessment Billing EDITH-7 Assessment Tool: EDITH-7 Assessment 27716 Review of Systems Const All systems reviewed & are unremarkable except as noted in HPI and below Eyes Reports no additional complaints ENT Reports no additional complaints Card Reports no additional complaints Resp Reports no additional complaints GI Reports no additional complaints Physical exam (Primary Care) Vital Signs: Last Vital Signs Temp 97.7 F 08/25/24 13:07 Pulse 115 H 08/25/24 13:07 Resp 20 08/25/24 13:07 BP 138/76 08/25/24 13:07 Pulse Ox 96 08/25/24 13:07 Oxygen Delivery Method Room Air 08/25/24 13:07 BMI result Body Mass Index 26.6 Tobacco/Smoking Status: Tobacco use Status Tobacco use date assessed 08/25/24 08/25/24 13:30 Patient Tobacco Use Status Current everyday Tobacco 08/25/24 13:07 Tobacco use type Cigarette 08/25/24 13:07 e-Cigarette/Vaping Use Never Used 08/25/24 13:07 PHQ-9: PHQ-9 Score PHQ-9: Total score 0 08/25/24 13:30 Depression Screening Interpretation: Negative Thrive Assessment: Date of Thrive Assessment Date Thrive assessed 08/25/24 08/25/24 13:30 Const General: no acute distress HENMT Head: Yes normal to inspection Ears: TM's normal bilaterally Face and sinus: Yes normal facial exam Mouth: Normal oral and palatal mucosa present Throat: Yes posterior oropharynx normal Eyes General: appearance normal, both eyes and all related structures Neck Neck: Yes no lymphadenopathy and Yes supple Resp Effort & Inspection: normal respiratory effort Auscultation: clear to auscultation bilaterally Cardio Rhythm: regular rhythm Heart sounds: S1 normal heart sound present and S2 normal heart sound present GI Inspection: Yes normal to inspection Palpation (GI): Soft to palpation Percussion: Yes normal to percussion Auscultation: normal bowel sounds Coding Level of Care Code Est Pt Prev Care >65y(92215) Diagnoses Hyperlipidemia E78.5 Hypertension I10 Hyperglycemia R73.9 COPD (chronic obstructive pulmonary disease) J44.9 Annual physical exam Z00.00 Colonoscopy refused Z53.20 Tobacco dependence F17.200 Hematuria R31.9 Additional Codes EDITH-7 Assessment Billing - EDITH-7 Assessment Tool: EDITH-7 Assessment 17573 ([id number]) PHQ-9 - 48949 - PHQ-9 Billing: Yes ([id number]) Assessment & Plan Assessment & Plan (1) Hyperlipidemia: Code(s): E78.5 - Hyperlipidemia, unspecified Category: Medical Plan: cont meds (2) Hypertension: Code(s): I10 - Essential (primary) hypertension Category: Medical Plan: restart Amlodipine (3) Hyperglycemia: Comment: A1c 5.6 02/14 Code(s): R73.9 - Hyperglycemia, unspecified Category: Medical Plan: ADA diet, check A1C (4) COPD (chronic obstructive pulmonary disease): Code(s): J44.9 - Chronic obstructive pulmonary disease, unspecified Category: Medical Plan: start Anoro, (5) Annual physical exam: Code(s): Z00.00 - Encounter for general adult medical examination without abnormal findings Category: Medical Plan: well balanced diet, regular exercise discussed (6) Colonoscopy refused: Comment: NEGATIVE COLONOSCOPY 2009, refused 05/2024 Code(s): Z53.20 - Procedure and treatment not carried out because of patient's decision for unspecified reasons Category: Medical Plan: Patient refused colonoscopy (7) Tobacco dependence: Comment: Established with lung cancer screening program Code(s): F17.200 - Nicotine dependence, unspecified, uncomplicated Category: Medical Plan: Tobacco quitting discussed with the patient (8) Hematuria: Comment: established with urology Dr. Luevano, negative cystoscopy and urine cytology 04/2024 Code(s): R31.9 - Hematuria, unspecified Category: Medical Plan: Follow-up with urology Orders: Orders Comprehensive [facility] [place]. Panel Fast Today E78.5 - Hyperlipidemia, unspecified, I10 - Essential (primary) hypertension, R73.9 - Hyperglycemia, unspecified Complete Blood Count Auto Diff Today E78.5 - Hyperlipidemia, unspecified, I10 - Essential (primary) hypertension, R73.9 - Hyperglycemia, unspecified Comprehensive Ages [place]. Panel Fast 3 Months E78.5 - Hyperlipidemia, unspecified, I10 - Essential (primary) hypertension Complete Blood Count Auto Diff 3 Months E78.5 - Hyperlipidemia, unspecified, I10 - Essential (primary) hypertension, R31.9 - Hematuria, unspecified Lipid Panel 3 Months E78.5 - Hyperlipidemia, unspecified, I10 - Essential (primary) hypertension, R31.9 - Hematuria, unspecified Lipid Panel Today E78.5 - Hyperlipidemia, unspecified, I10 - Essential (primary) hypertension, R73.9 - Hyperglycemia, unspecified Hemoglobin A1c Today E78.5 - Hyperlipidemia, unspecified, I10 - Essential (primary) hypertension, R73.9 - Hyperglycemia, unspecified Hemoglobin A1c 3 Months E78.5 - Hyperlipidemia, unspecified, I10 - Essential (primary) hypertension, R31.9 - Hematuria, unspecified Medications: New umeclidinium-vilanterol 62.5-25 mcg/actuation (Anoro Ellipta) 1 inh inhalation DAILY 60 ea 3RF amlodipine 10 mg PO DAILY 90 tabs 3RF Refilled atorvastatin 40 mg PO DAILY 90 tabs 3RF metoprolol succinate ER 150 mg (1.5 x 100 mg) PO DAILY 135 tabs 3RF fenofibrate 160 mg PO DAILY 90 tabs 3RF
== END 2024-08-25 14:17 | disposition home or self-care (01) ==
PROVIDERS: PCP Internal Medicine; Visit Provider Internal Medicine
DX: Z00.00 Encounter for general adult medical examination without abnormal findings (principal); J44.9 Chronic obstructive pulmonary disease, unspecified; E78.5 Hyperlipidemia, unspecified; I10 Essential (primary) hypertension; R73.9 Hyperglycemia, unspecified; Z53.20 Procedure and treatment not carried out because of patient's decision for unspecified reasons; F17.200 Nicotine dependence, unspecified, uncomplicated; R31.9 Hematuria, unspecified

== ENCOUNTER → 2024-08-25 12:53 | Outpatient (BNVA) | payer BC, SELFPAY | PROVIDERS: PCP Internal Medicine; Visit Provider Internal Medicine | DX: Z00.00 Encounter for general adult medical examination without abnormal findings (principal); E78.5 Hyperlipidemia, unspecified; I10 Essential (primary) hypertension; R73.9 Hyperglycemia, unspecified; J44.9 Chronic obstructive pulmonary disease, unspecified; R31.9 Hematuria, unspecified; F17.210 Nicotine dependence, cigarettes, uncomplicated | CPT/HCPCS: 96127 ==

== ENCOUNTER 2024-12-06 07:05 | Outpatient (REF) | payer BC, SELFPAY ==
[2024-12-06 11:18] LABS: MANUAL DIFF FLAG NO
[2024-12-06 11:27] LABS: Basophils Percent Auto 0.4 % (0-2); Eosinophils Absolute Auto 0.2 X10*3/uL (0.0-0.4); Eosinophils Percent Auto 3.3 % (0-4); Hemoglobin 15.5 g/dl (14.0-18.0); Imm Gran Abs Auto 0.02 X10*3/uL (0.00-0.03); Imm Gran Pct Auto 0.4 % (0.0-0.4); Lymphocytes Absolute Auto 1.3 X10*3/uL (1.2-4.9); Lymphocytes Percent Auto 24.4 % (20-40); Mean Corpuscular Hemoglobin 30.3 pg (27.0-33.0); Mean Platelet Volume 11.5 fL (9.4-12.4); Monocytes Absolute Auto 0.8 X10*3/uL (0.1-1.2); Neutrophils Absolute Auto 2.8 x10*3/uL (2.0-8.3); Neutrophils Percent Auto 55.5 % (45-73); Platelet Count 234 X10*3/uL (160-400); Red Blood Count 5.11 X10*6/uL (4.60-5.80); Red Cell Distribution Width 14.8 % (11.0-16.0); White Blood Count 5.1 X10*3/uL (4.8-10.8)
[2024-12-06 11:46] LABS: Alanine Aminotransferase 18 U/L (0-40); Alkaline Phosphatase 65 U/L (39-117); Anion Gap 11 (12-20); Aspartate Amino Transferase 23 U/L (5-37); Bilirubin Total 0.3 mg/dL (0.0-1.0); Blood Urea Nitrogen 17 mg/dL (9-16); Calcium 9.7 mg/dL (8.4-10.2); Carbon Dioxide 28 mmol/L (22-29); Chloride 111 mmol/L (96-108); Cholesterol 132 mg/dL (<200); Estimated Glomerular Filt Rate > 60; Glucose Fasting 95 mg/dL (60-99); HDL Cholesterol 37 mg/dL (>40); LDL Cholesterol Calculated 72 mg/dL (<100); Potassium 4.4 mmol/L (3.3-5.1); Sodium 146 mmol/L (135-145); Total Protein 6.8 g/dL (6.5-8.0); Triglycerides 117 mg/dL (<150)
[2024-12-06 11:55] LABS: Estimated Average Glucose 114 mg/dL; Hemoglobin A1c % 5.6 % (<6.0)
== END 2024-12-06 07:06 | disposition home or self-care (01) ==
LOC: HO.HMGCLDS 07:05
PROVIDERS: PCP Internal Medicine; Visit Provider Internal Medicine
DX: I10 Essential (primary) hypertension (principal); R31.9 Hematuria, unspecified; E78.5 Hyperlipidemia, unspecified; Z13.1 Encounter for screening for diabetes mellitus
CPT/HCPCS: 36415; 80053; 80061; 83036; 85025

== ENCOUNTER 2024-12-11 13:42 | Outpatient (AMB) | payer BC, SELFPAY ==
[2024-12-11 13:43] VITALS: BP 122/76; PULSE 108; RESP 18; TEMP 36.9; O2SAT 96; BMI 24.9
--- NOTE | 2024-12-11 13:43 | A.OFFPC_ITS ---
Vital Signs 12/11/24 13:43 Height 5 ft 8 in Weight 164 lb BMI 24.9 BP 122/76 Blood Pressure Location Lt brachial Position Sitting Respiration 18 Pulse 108 H Pulse Source Pulse Oximeter Temp 98.5 F Temp Source Oral Pulse Oximetry (%) 96 Oxygen Delivery Method Room Air Intake Visit Reasons: 3 months f/up, resched Intake Note: Pt is here today for 3 months follow up visit. Allergies No Known Allergies Allergy (Verified 08/25/24 13:20) Medication List - Last Reconciled 12/11/24 by Parris Devi MD amlodipine 10 mg PO DAILY atorvastatin 40 mg PO DAILY bupropion HCl XL 300 mg PO QAM clopidogrel (Plavix) 75 mg PO DAILY fenofibrate 160 mg PO DAILY fluticasone propionate 50 mcg/actuation (Allergy Relief (fluticasone)) 1 spray intranasal DAILY ibuprofen 600 mg PO Q8H PRN loratadine (Claritin) 10 mg PO DAILY metoprolol succinate ER 150 mg (1.5 x 100 mg) PO DAILY omeprazole 20 mg PO QPM thiamine HCl (vitamin B1) 100 mg PO DAILY umeclidinium-vilanterol 62.5-25 mcg/actuation (Anoro Ellipta) 1 inh inhalation DAILY varenicline tartrate (Chantix Starting Month Box) PO PER PKG DIR varenicline tartrate (Chantix Continuing Month Box) 1 mg PO BID Tobacco use date assessed: 08/25/24 Fall risk assessment: No Falls in past year Last assessed Fall Risk: 12/11/24 Dental Screening Dental Screen Date: 08/25/24 [facility] Medical History (Updated 12/11/24 @ 15:11 by Parris Devi MD) Cough Obstructive sleep apnea Hoarseness Personal history of nicotine dependence Renal cyst, acquired, right Colonoscopy refused Tobacco dependence Hyperlipidemia Hip pain, bilateral Chronic right flank pain Complex renal cyst Chronic anxiety Hypertension Surgical History History of left knee surgery History of colonoscopy Family History Father No problems noted. Mother Stroke Social History Housing: House Alcohol intake: current Alcohol intake frequency: holidays/special occasions o nly Alcohol type: beer Patient Tobacco Use Status: Current everyday Tobacco user Tobacco use type: Cigarette Cigarettes Per Day: 15 Years Smoked: 35, onset 23, 3/4ppd x 35yrs, 25+PYH e-Cigarette/Vaping Use: Never Used service: No Current occupational status: employed Cognitive needs: No Hearing needs: No Vision needs: Yes Questionnaire Thrive Questionnaire Date Thrive assessed: 08/25/24 EDITH-7 AMB Questionnaire EDITH-7 Date EDITH - 7 assessed: 08/25/24 Source: Developed by Drs. Mir Barros, Stephanie Greene, Rashad Avila and colleagues, with an educational alyssa from [employer]. Review of Systems Const All systems reviewed & are unremarkable except as noted in HPI and below Eyes Reports no additional complaints ENT Reports no additional complaints Card Reports no additional complaints Resp Reports no additional complaints GI Reports no additional complaints Reports no additional complaints Physical exam (Primary Care) Vital Signs: Last Vital Signs Temp 98.5 F 12/11/24 13:43 Pulse 108 H 12/11/24 13:43 Resp 18 12/11/24 13:43 BP 122/76 12/11/24 13:43 Pulse Ox 96 12/11/24 13:43 Oxygen Delivery Method Room Air 12/11/24 13:43 BMI result Body Mass Index 24.9 Tobacco/Smoking Status: Tobacco use Status Tobacco use date assessed 08/25/24 12/11/24 13:44 Patient Tobacco Use Status Current everyday Tobacco 12/11/24 13:44 Tobacco use type Cigarette 12/11/24 13:44 e-Cigarette/Vaping Use Never Used 12/11/24 13:44 Thrive Assessment: Date of Thrive Assessment Date Thrive assessed 08/25/24 12/11/24 13:44 Const General: no acute distress HENMT Head: Yes normal to inspection Face and sinus: Yes normal facial exam Throat: Yes posterior oropharynx normal Resp Effort & Inspection: normal respiratory effort Auscultation: clear to auscultation bilaterally Cardio Rhythm: regular rhythm Heart sounds: S1 normal heart sound present and S2 normal heart sound present GI Inspection: Yes normal to inspection Palpation (GI): Soft to palpation Percussion: Yes normal to percussion Auscultation: normal bowel sounds Coding Level of Care Code Est Pt Level 4 (14132) Complex EM visit Add On G2211 Diagnoses Smoker F17.200 Hypertension I10 Hyperlipidemia E78.5 Hyperglycemia R73.9 Assessment & Plan Assessment & Plan (1) Smoker: Comment: 3/4 PPD x 40 yrs, referred to lung cancer screening program Code(s): F17.200 - Nicotine dependence, unspecified, uncomplicated Category: Social Hx Plan: Tobacco quitting discussed with the patient (2) Hypertension: Code(s): I10 - Essential (primary) hypertension Category: Medical Plan: Continue current medications (3) Hyperlipidemia: Code(s): E78.5 - Hyperlipidemia, unspecified Category: Medical Plan: Continue statin and fenofibrate (4) Hyperglycemia: Comment: A1c 5.6 02/14 Code(s): R73.9 - Hyperglycemia, unspecified Category: Medical Plan: A1c is 5.6, continue ADA diet increase physical activity follow-up in 4 months with a fasting labs before Orders: Orders PSA,Total (Free>4and<10) 4 Months E78.5 - Hyperlipidemia, unspecified, I10 - Essential (primary) hypertension, R73.9 - Hyperglycemia, unspecified Vitamin B1 4 Months E78.5 - Hyperlipidemia, unspecified, I10 - Essential (primary) hypertension, R73.9 - Hyperglycemia, unspecified Vitamin D 25-OH Total 4 Months E78.5 - Hyperlipidemia, unspecified, I10 - Essential (primary) hypertension, R73.9 - Hyperglycemia, unspecified Hemoglobin A1c 4 Months E78.5 - Hyperlipidemia, unspecified, I10 - Essential (primary) hypertension, R73.9 - Hyperglycemia, unspecified Comprehensive [place]. Panel Fast 4 Months E78.5 - Hyperlipidemia, unspecified, I10 - Essential (primary) hypertension, R73.9 - Hyperglycemia, unspecified Lipid Panel 4 Months E78.5 - Hyperlipidemia, unspecified, I10 - Essential (primary) hypertension, R73.9 - Hyperglycemia, unspecified Complete Blood Count Auto Diff 4 Months E78.5 - Hyperlipidemia, unspecified, I10 - Essential (primary) hypertension, R73.9 - Hyperglycemia, unspecified Referrals Thoracic/General Surgery Referral F17.200 - Nicotine dependence, unspecified, uncomplicated Cologuard Test Z12.11 - Encounter for screening for malignant neoplasm of colon, Z12.12 - Encounter for screening for malignant neoplasm of rectum Medications: Discontinued clopidogrel (Plavix) Discontinued Reason: Doctor's Order 75 mg PO DAILY 90 tabs 1RF
== END 2024-12-11 14:24 | disposition home or self-care (01) ==
LOC: HO.HMCC 13:42
PROVIDERS: PCP Internal Medicine; Visit Provider Internal Medicine
DX: F17.200 Nicotine dependence, unspecified, uncomplicated (principal); I10 Essential (primary) hypertension; E78.5 Hyperlipidemia, unspecified; R73.9 Hyperglycemia, unspecified

== ENCOUNTER → 2024-12-11 13:42 | Outpatient (BNVA) | payer BC, SELFPAY | PROVIDERS: PCP Internal Medicine; Visit Provider Internal Medicine | DX: Z13.89 Encounter for screening for other disorder (principal) ==

== ENCOUNTER 2025-03-10 13:50 | Outpatient (AMB) | payer BC, SELFPAY ==
--- NOTE | 2025-03-10 14:21 | MHC.PC.OV ---
Vital Signs 03/10/25 14:24 Height 5 ft 8 in Weight 167 lb BMI 25.4 BP 126/74 Blood Pressure Location Lt brachial Position Sitting Respiration 20 Pulse 105 H Pulse Source Pulse Oximeter Temp 98.3 F Temp Source Oral Pulse Oximetry (%) 95 Oxygen Delivery Method Room Air Intake Visit Reasons: Rash on abdomen Intake Note: Pt is here today for a sick visit. Pt c/o painful rash on his abdomen. Allergies No Known Allergies Allergy (Verified 03/10/25 14:24) Medication List - Last Reconciled 03/10/25 by Parris Devi MD amlodipine 10 mg PO DAILY atorvastatin 40 mg PO DAILY bupropion HCl XL 300 mg PO QAM fenofibrate 160 mg PO DAILY fluticasone propionate 50 mcg/actuation (Allergy Relief (fluticasone)) 1 spray intranasal DAILY ibuprofen 600 mg PO Q8H PRN ibuprofen 600 mg PO Q8H PRN loratadine (Claritin) 10 mg PO DAILY metoprolol succinate ER 150 mg (1.5 x 100 mg) PO DAILY omeprazole 20 mg PO QPM thiamine HCl (vitamin B1) 100 mg PO DAILY umeclidinium-vilanterol 62.5-25 mcg/actuation (Anoro Ellipta) 1 inh inhalation DAILY valacyclovir (Valtrex) 1,000 mg PO Q8H varenicline tartrate (Chantix Starting Month Box) PO PER PKG DIR varenicline tartrate (Chantix Continuing Month Box) 1 mg PO BID Tobacco use date assessed: 03/10/25 Fall risk assessment: No Falls in past year Last assessed Fall Risk: 03/10/25 Dental Screening Dental Screen Date: 08/25/24 HPI Rash on abdomen HPI Details Patient presents complaining of painful rash on the abdomen for 3 days. Patient denies fever chills. Hypertension COPD are controlled on current medications [facility] Medical History (Updated 03/10/25 @ 14:59 by Parris Devi MD) Cough Obstructive sleep apnea Hoarseness Personal history of nicotine dependence Renal cyst, acquired, right Colonoscopy refused Tobacco dependence Hyperlipidemia Hip pain, bilateral Chronic right flank pain Complex renal cyst Chronic anxiety Hypertension Surgical History History of left knee surgery History of colonoscopy Family History Father No problems noted. Mother Stroke Social History Housing: House Alcohol intake: current Alcohol intake frequency: holidays/special occasions only Alcohol type: beer Patient Tobacco Use Status: Current everyday Tobacco user Tobacco use type: Cigarette Cigarettes Per Day: 15 Years Smoked: 35, onset 23, 3/4ppd x 35yrs, 25+PYH Packs per year/per ci.00 e-Cigarette/Vaping Use: Never Used service: No Current occupational status: employed Cognitive needs: No Hearing needs: No Vision needs: Yes Questionnaire PHQ-9 Over the last 2 weeks, how often have you been bothered by any of the following problems? 1. Little interest or pleasure in doing things: not at all 2. Feeling down, depressed, or hopeless: not at all 3. Trouble falling or staying asleep, or sleeping too much: not at all 4. Feeling tired or having little energy: not at all 5. Poor appetite or overeating: not at all 6. Feeling bad about yourself - or that you are a failure or have let yourself or your family down: not at all 7. Trouble concentrating on things, such as reading the newspaper or watching television: not at all 8. Moving or speaking so slowly that other people could have noticed. Or the opposite - being so fidgety or restless that you have been moving around a lot more than usual: not at all 9. Thoughts that you would be better off or of hurting yourself in some way: not at all Total score: 0 Depression Screening Interpretation: Negative Depression Screening Done: Yes 69713 - PHQ-9 Billing: Yes Source: Developed by Drs. Mir Barros, Stephanie Greene, Rashad Avila and colleagues, with an educational alyssa from [employer]. Thrive Questionnaire Date Thrive assessed: 08/25/24 EDITH-7 AMB Questionnaire EDITH-7 Date EDITH - 7 assessed: 08/25/24 Feeling nervous, anxious, or on edge: 0 = Not at all Not being able to stop or control worryin = Not at all Worrying too much about different things: 0 = Not at all Trouble relaxin = Not at all Being so restless that it is hard to sit still: 0 = Not at all Becoming easily annoyed or irritable: 0 = Not at all Feeling afraid as if something awful might happen: 0 = Not at all Total EDITH-7 score (0-4 normal; 5-9 mild; 10-14 moderate; 15-21 severe): 0 Source: Developed by Drs. Mir Barros, Stephanie Greene, Rashad Avila and colleagues, with an educational alyssa from [employer]. Review of Systems Const All systems reviewed & are unremarkable except as noted in HPI and below ENT Reports no additional complaints Card Reports no additional complaints Resp Reports no additional complaints GI Reports no additional complaints Reports no additional complaints Physical exam (Primary Care) Vital Signs: Last Vital Signs Temp 98.3 F 03/10/25 14:24 Pulse 105 H 03/10/25 14:24 Resp 20 03/10/25 14:24 BP 126/74 03/10/25 14:24 Pulse Ox 95 03/10/25 14:24 Oxygen Delivery Method Room Air 03/10/25 14:24 BMI result Body Mass Index 25.4 Tobacco/Smoking Status: Tobacco use Status Tobacco use date assessed 03/10/25 03/10/25 14:25 Patient Tobacco Use Status Current everyday Tobacco 03/10/25 14:21 Tobacco use type Cigarette 03/10/25 14:21 e-Cigarette/Vaping Use Never Used 03/10/25 14:21 PHQ-9: PHQ-9 Score PHQ-9: Total score 0 03/10/25 14:33 Depression Screening Interpretation: Negative Thrive Assessment: Date of Thrive Assessment Date Thrive assessed 08/25/24 03/10/25 14:21 Const General: no acute distress HENMT Head: Yes normal to inspection Resp Effort & Inspection: normal respiratory effort Auscultation: clear to auscultation bilaterally Cardio Rhythm: regular rhythm Heart sounds: S1 normal heart sound present and S2 normal heart sound present Skin Other: Erythematous vesicular rash on the mid abdomen in dermatomal distribution Coding Level of Care Code Est Pt Level 3 (20441) Diagnoses [place] B02.9 Hypertension I10 Additional Codes PHQ-9 - 58652 - PHQ-9 Billing: Yes ([id number]) Assessment & Plan Assessment & Plan (1) Zoster: Code(s): B02.9 - Zoster without complications Category: Medical Plan: Valtrex and ibuprofen prescribed and supportive care discussed with the patient (2) Hypertension: Code(s): I10 - Essential (primary) hypertension Category: Medical Plan: Continue medications Medications: New valacyclovir (Valtrex) 1,000 mg PO Q8H 30 tabs 0RF ibuprofen 600 mg PO Q8H PRN 60 tabs 0RF pain
[2025-03-10 14:24] VITALS: BP 126/74; PULSE 105; RESP 20; TEMP 36.8; O2SAT 95; BMI 25.4
== END 2025-03-10 15:00 | disposition home or self-care (01) ==
LOC: HO.HMCC 13:51
PROVIDERS: PCP Internal Medicine; Visit Provider Internal Medicine
DX: B02.9 Zoster without complications (principal); I10 Essential (primary) hypertension

== ENCOUNTER → 2025-03-10 13:50 | Outpatient (BNVA) | payer BC, SELFPAY | PROVIDERS: PCP Internal Medicine; Visit Provider Internal Medicine | DX: I10 Essential (primary) hypertension (principal); J44.9 Chronic obstructive pulmonary disease, unspecified; B02.9 Zoster without complications; Z79.899 Other long term (current) drug therapy | CPT/HCPCS: 96127 ==

== ENCOUNTER 2025-03-30 09:55 | Outpatient (AMB) | payer BC, SELFPAY ==
[2025-03-30 09:59] VITALS: BP 128/78; PULSE 121; RESP 19; TEMP 36.9; O2SAT 96; BMI 24.9
--- NOTE | 2025-03-30 09:59 | MHC.PC.OV ---
Vital Signs 03/30/25 09:59 Height 5 ft 8 in Weight 164 lb BMI 24.9 BP 128/78 Blood Pressure Location Lt brachial Position Sitting Respiration 19 Pulse 121 H Pulse Source Pulse Oximeter Temp 98.5 F Temp Source Oral Pulse Oximetry (%) 96 Oxygen Delivery Method Room Air Intake Visit Reasons: lump on arm Intake Note: Pt is here today for a sick visit. Pt c/o panful L lump on his L elbow area. Pt states that he was seen in Urgent care yesterday for the lump on his palm of L hand. Allergies No Known Allergies Allergy (Verified 03/10/25 14:24) Medication List - Last Reconciled 03/30/25 by Parris Devi MD amlodipine 10 mg PO DAILY ammonium lactate 12% 1 appl topical BID PRN atorvastatin 40 mg PO DAILY bupropion HCl XL 300 mg PO QAM fenofibrate 160 mg PO DAILY fluticasone propionate 50 mcg/actuation (Allergy Relief (fluticasone)) 1 spray intranasal DAILY ibuprofen 600 mg PO Q8H PRN loratadine (Claritin) 10 mg PO DAILY metoprolol succinate ER 150 mg (1.5 x 100 mg) PO DAILY omeprazole 20 mg PO QPM thiamine HCl (vitamin B1) 100 mg PO DAILY umeclidinium-vilanterol 62.5-25 mcg/actuation (Anoro Ellipta) 1 inh inhalation DAILY valacyclovir (Valtrex) 1,000 mg PO Q8H varenicline tartrate (Chantix Starting Month Box) PO PER PKG DIR varenicline tartrate (Chantix Continuing Month Box) 1 mg PO BID Tobacco use date assessed: 03/10/25 Fall risk assessment: No Falls in past year Last assessed Fall Risk: 03/30/25 Dental Screening Dental Screen Date: 08/25/24 HPI lump on arm HPI Details Patient presents complaining of skin thickening on the below left elbow. Patient has a history of skin abscess in this area and had I and D 5 years ago. Patient supports himself on elbows when sitting on the armchair and has noticed thickening of the skin over the area. Patient developed left palm infection after was trying to remove skin wart with [id number] wart removal solution. He was seen in walk-in yesterday was prescribed Keflex and bacitracin ointment. Hypertension hyperlipidemia are controlled on current medications [facility] Medical History Cough Obstructive sleep apnea Hoarseness Personal history of nicotine dependence Renal cyst, acquired, right Colonoscopy refused Tobacco dependence Hyperlipidemia Hip pain, bilateral Chronic right flank pain Complex renal cyst Chronic anxiety Hypertension Surgical History History of left knee surgery History of colonoscopy Family History Father No problems noted. Mother Stroke Social History Housing: House Alcohol intake: current Alcohol intake frequency: holidays/special occasions only Alcohol type: beer Patient Tobacco Use Status: Current everyday Tobacco user Tobacco use type: Cigarette Cigarettes Per Day: 15 Years Smoked: 35, onset 23, 3/4ppd x 37yrs, 25+PYH e-Cigarette/Vaping Use: Never Used service: No Current occupational status: employed Cognitive needs: No Hearing needs: No Vision needs: Yes Questionnaire Thrive Questionnaire Date Thrive assessed: 08/25/24 EDITH-7 AMB Questionnaire EDITH-7 Date EDITH - 7 assessed: 08/25/24 Source: Developed by Drs. Mir Barros, Stephanie Greene, Rashad Avila and colleagues, with an educational alyssa from [email or web address]. Review of Systems Const All systems reviewed & are unremarkable except as noted in HPI and below Card Reports no additional complaints Resp Reports no additional complaints GI Reports no additional complaints Physical exam (Primary Care) Vital Signs: Last Vital Signs Temp 98.5 F 03/30/25 09:59 Pulse 121 H 03/30/25 09:59 Resp 19 03/30/25 09:59 BP 128/78 03/30/25 09:59 Pulse Ox 96 03/30/25 09:59 Oxygen Delivery Method Room Air 03/30/25 09:59 BMI result Body Mass Index 24.9 Tobacco/Smoking Status: Tobacco use Status Tobacco use date assessed 03/10/25 03/30/25 10:04 Patient Tobacco Use Status Current everyday Tobacco 03/30/25 10:04 Tobacco use type Cigarette 03/30/25 10:04 e-Cigarette/Vaping Use Never Used 03/30/25 10:04 Thrive Assessment: Date of Thrive Assessment Date Thrive assessed 08/25/24 03/30/25 10:04 Const General: no acute distress Resp Effort & Inspection: normal respiratory effort Auscultation: clear to auscultation bilaterally Cardio Rhythm: regular rhythm Heart sounds: S1 normal heart sound present and S2 normal heart sound present Extrem Other: Below left elbow 2 cm area of skin discoloration and scaling there is no erythema warmth or tenderness, left hand palmar region 1 cm round area of shallow ulcer with yellowish discharge Coding Level of Care Code Est Pt Level 3 (62382) Diagnoses Hypertension I10 Infected hand L08.9 Assessment & Plan Assessment & Plan (1) Hypertension: Code(s): I10 - Essential (primary) hypertension Category: Medical Plan: Continue medications (2) Infected hand: Code(s): L08.9 - Local infection of the skin and subcutaneous tissue, unspecified Category: Medical Plan: Patient will start Keflex today and topical skin care discussed with the patient. If infection is not improve with a week he will be referred to hand surgeon Medications: New ammonium lactate 12% 1 appl topical BID PRN 140 grams 0RF dry skin Discontinued ibuprofen Discontinued Reason: Doctor's Order 600 mg PO Q8H PRN 14 tabs 0RF pain
== END 2025-03-30 11:39 | disposition home or self-care (01) ==
LOC: HO.HMCC 09:56
PROVIDERS: PCP Internal Medicine; Visit Provider Internal Medicine
DX: I10 Essential (primary) hypertension (principal); L08.9 Local infection of the skin and subcutaneous tissue, unspecified

== ENCOUNTER 2025-04-08 10:07 | Outpatient (AMB) | payer BC, SELFPAY ==
--- NOTE | 2025-04-08 10:39 | MHC.OFFVIS ---
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 States he was attempting to remove a wart he has on his palm, states he burned it with nitrogen 2 weeks ago. He has no pain, he has been keeping it clean and is using aloe vera to help heal. He then noticed a little drainage a week ago, seen at an urgent care who prescribe ABX that he is still taking. Denies numbness or tingling. 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 He says he was using liquid Nitrogen from his workplace to attempt a large wart removal from his left palm on ~03/25/25. Since then he has had an open wound with some mild drainage from his palm. He went to urgent care and was prescribed PO Abx, which he is taking. 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 He says he has used the Nitrogen from his work many times without issue, until this most recent use. He feels this Abx have not been helping his wound. He says it appears unchanged He says he feels there is still parts of the soft tissue mass in his palm that he would like removed. He denies seeing Dermatology for this. [facility] Medical History Cough Obstructive sleep apnea Hoarseness Personal history of nicotine dependence Renal cyst, acquired, right Colonoscopy refused Tobacco dependence Hyperlipidemia Hip pain, bilateral Chronic right flank pain Complex renal cyst Chronic anxiety Hypertension Surgical History History of left knee surgery History of colonoscopy Family History Father No problems noted. Mother Stroke Social History Housing: House Alcohol intake: current Alcohol intake frequency: holidays/special occasions only Alcohol type: beer Patient Tobacco Use Status: Current everyday Tobacco user Tobacco use type: Cigarette Cigarettes Per Day: 15 Years Smoked: 35, onset 23, 3/4ppd x 37yrs, 25+PYH e-Cigarette/Vaping Use: Never Used service: No Current occupational status: employed Cognitive needs: No Hearing needs: No Vision needs: Yes Review of Systems Const All systems reviewed & are unremarkable except as noted in HPI and below Physical Exam Vital Signs: BMI result Body Mass Index 24.9 Const General: cooperative, healthy appearing and no acute distress Orientation/consciousness: patient oriented x3 HEENT Head: Yes normocephalic and Yes atraumatic Eyes EOM: EOMs intact bilaterally Resp Effort & Inspection: normal respiratory effort and able to speak in complete sentences Cardio Jugular venous distension: no JVD Skin General skin exam: turgor normal Rashes: no rashes Neuro General: patient oriented x3 Extrem Other: Evaluation of Left Upper Extremity: The patient is alert, oriented, and in no acute distress Neuro: Median, Ulnar, Radial nerves motor and sensory intact and sensation is normal to the tips of all digits Vascular: Cap refill brisk ROM: He can easily make a fist and extend all his digits General: No Ecchymosis. He has an ~2cm diameter wound, over the a1 denia area of the middle finger. This appears full thickness through the skin, no exposed tendons. Some early granulation tissue forming. No surrounding erythema swelling or evidence of infection at present. Psych Appearance: grossly normal Affect: normal affect Attitude: cooperative Assessment & Plan Assessment & Plan (1) Mass of palm: Comment: L Code(s): R22.30 - Localized swelling, mass and lump, unspecified upper limb Category: Medical Plan Assessment & Plan: 1. Left palm wound ~2cm in diameter From a use of Nitrogen at his workplace to remove a suspected skin wart DOI: ~03/25/25 This is not a work related injury I educated him about this condition I discussed operative and non-operative treatment options No operative intervention indicated at this time I explained the signs and symptoms of infection, if the patient develops any new or worsening erythema, drainage, pain, or warmth they should contact the clinic or attend the ED. He should clean the wound and apply topical Abx ointment 1-2X daily. He does not need to take his 2nd PO Augmentin prescription. I instructed him on proper wound care, including frequent dressing changes and keeping the area clean & dry As it is unclear what the initial mass in his palm was, and the patient reports the mass is still present in his palm, I referred him to Dermatology for assessment as I am concerned that this may be possible skin cancer vs a wart or other lesion. He will follow up next week with SASKIA Abreu for a wound check Please note that greater than 40 minutes was spent with this patient going over the history, evaluating the patient and radiographs, formulating possible treatment options, discussing them with the patient, and documenting the visit. Scribed for Sabine Spain MD by Alonso Mccabe, bacteriologist medical, on 04/08/25 at 11:00 AM, EST. Orders: Referrals Dermatology Referral R22.30 - Localized swelling, mass and lump, unspecified upper limb Coding Level of Care Code New Pt Level 4 (75055) Diagnoses Mass of palm R22.30
[2025-04-08 10:40] VITALS: BMI 24.9
== END 2025-04-08 11:31 | disposition home or self-care (01) ==
LOC: HO.HOS 10:07
PROVIDERS: PCP Internal Medicine; Visit Provider Orthopaedic Surgery
DX: R22.30 Localized swelling, mass and lump, unspecified upper limb (principal)
CPT/HCPCS: 99204

== ENCOUNTER 2025-04-11 09:02 | Outpatient (REF) | payer BC, SELFPAY ==
[2025-04-11 11:26] LABS: MANUAL DIFF FLAG NO
[2025-04-11 11:36] LABS: Hematocrit 46.0 % (42.0-52.0); Hemoglobin 15.4 g/dl (14.0-18.0); Imm Gran Abs Auto 0.03 X10*3/uL (0.00-0.03); Imm Gran Pct Auto 0.6 % (0.0-0.4); Lymphocytes Absolute Auto 1.5 X10*3/uL (1.2-4.9); Mean Corpuscular HGB Conc 33.5 g/dl (31.0-36.0); Mean Corpuscular Hemoglobin 30.5 pg (27.0-33.0); Mean Corpuscular Volume 91.1 fL (80.0-98.0); NRBC Abs Auto 0.000 X10*3/uL (0.0-0.012); NRBC Pct Auto 0.0 /100WBC (0.0-0.2); Platelet Count 258 X10*3/uL (160-400); Red Blood Count 5.05 X10*6/uL (4.60-5.80); White Blood Count 5.1 X10*3/uL (4.8-10.8)
[2025-04-11 11:52] LABS: Alanine Aminotransferase 27 U/L (0-40); Albumin Level 4.1 g/dL (3.5-5.0); Alkaline Phosphatase 77 U/L (39-117); Anion Gap 15 (12-20); Aspartate Amino Transferase 32 U/L (5-37); Blood Urea Nitrogen 18 mg/dL (9-16); Calcium 9.1 mg/dL (8.4-10.2); Carbon Dioxide 25 mmol/L (22-29); Chloride 109 mmol/L (96-108); Cholesterol 158 mg/dL (<200); Estimated Glomerular Filt Rate > 60; HDL Cholesterol 52 mg/dL (>40); Potassium 4.5 mmol/L (3.3-5.1); Sodium 144 mmol/L (135-145); Total Protein 7.1 g/dL (6.5-8.0); Triglycerides 153 mg/dL (<150)
[2025-04-11 12:02] LABS: PSA,Total (Free>4and<10) 3.21 ng/mL (0.00-4.00)
== END 2025-04-11 09:03 | disposition home or self-care (01) ==
LOC: HO.HMGCLDS 09:02
PROVIDERS: PCP Internal Medicine; Visit Provider Internal Medicine
DX: I10 Essential (primary) hypertension (principal); R73.9 Hyperglycemia, unspecified; E78.5 Hyperlipidemia, unspecified; Z12.5 Encounter for screening for malignant neoplasm of prostate; Z13.21 Encounter for screening for nutritional disorder
CPT/HCPCS: 36415; 80053; 80061; 82306; 83036; 84153; 84425; 85025

== ENCOUNTER 2025-04-15 13:20 | Outpatient (AMB) | payer BC, SELFPAY ==
[2025-04-15 13:37] VITALS: BMI 24.9
--- NOTE | 2025-04-15 13:37 | MHC.OFFVIS ---
Vital Signs 04/15/25 13:37 Height 5 ft 8 in Weight 164 lb BMI 24.9 Intake Visit Reasons: OV-left palm infection-1 WK wound check Intake Note: Yesica is a 64 year old male who presents today for follow up on his Left Palm Wound. Patient was last evaluated by Dr. Spain on 04/08/25. At that time he was advised to clean the wound and apply topical antibiotic ointment 1-2 times daily. He was instructed on frequent dressing changes and keeping the area clean & dry. A referral to Dermatology was placed due to concerns of possible skin cancer vs a wart or other lesion. Patient reports he is still having a little bit of pain. He has completed taking his antibiotics. He is not taking any pain medications. He has been using antiviotic ointment. Event Mgr Required: Yes Event Mgr Language: Kyrgyz Event Mgr Name: [id number] Allergies No Known Allergies Allergy (Verified 04/22/25 13:25) HPI HPI OV-left palm infection-1 WK wound check: Details: Yesica is a 64 year old male who presents today for follow up on his Left Palm Wound. Patient was last evaluated by Dr. Spain on 04/08/25. At that time he was advised to clean the wound and apply topical antibiotic ointment 1-2 times daily. He was instructed on frequent dressing changes and keeping the area clean & dry. A referral to Dermatology was placed due to concerns of possible skin cancer vs a wart or other lesion. Patient reports he is still having a little bit of pain. He has completed taking his antibiotics. He is not taking any pain medications. He has been using antiviotic ointment. [facility] Medical History Burn of right palm Cough Obstructive sleep apnea Hoarseness Personal history of nicotine dependence Renal cyst, acquired, right Colonoscopy refused Tobacco dependence Hyperlipidemia Hip pain, bilateral Chronic right flank pain Complex renal cyst Chronic anxiety Hypertension Surgical History History of left knee surgery History of colonoscopy Family History Father No problems noted. Mother Stroke Social History Housing: House Alcohol intake: current Alcohol intake frequency: holidays/special occasions only Alcohol type: beer Patient Tobacco Use Status: Current everyday Tobacco user Tobacco use type: Cigarette Cigarettes Per Day: 15 Years Smoked: 35, onset 23, 3/4ppd x 37yrs, 25+PYH e-Cigarette/Vaping Use: Never Used service: No Current occupational status: employed Cognitive needs: No Hearing needs: No Vision needs: Yes Review of Systems Const All systems reviewed & are unremarkable except as noted in HPI and below Physical Exam Vital Signs: BMI result Body Mass Index 24.9 Const General: cooperative, healthy appearing and no acute distress Orientation/consciousness: patient oriented x3 HEENT Head: Yes normocephalic and Yes atraumatic Eyes EOM: EOMs intact bilaterally Resp Effort & Inspection: normal respiratory effort and able to speak in complete sentences Cardio Jugular venous distension: no JVD Skin General skin exam: turgor normal Rashes: no rashes Neuro General: patient oriented x3 Extrem Other: Evaluation of Left Upper Extremity: The patient is alert, oriented, and in no acute distress Neuro: Median, Ulnar, Radial nerves motor and sensory intact and sensation is normal to the tips of all digits Vascular: Cap refill brisk ROM: He can easily make a fist and extend all his digits General: No Ecchymosis. He has an ~1.5cm diameter wound, over the a1 denia area of the middle finger. This appears full thickness through the skin, no exposed tendons. Additional granulation tissue forming. No surrounding erythema swelling or evidence of infection at present. Psych Appearance: grossly normal Affect: normal affect Attitude: cooperative Assessment & Plan Assessment & Plan (1) Mass of palm: Comment: L Code(s): R22.30 - Localized swelling, mass and lump, unspecified upper limb Category: Medical Plan Assessment & Plan: 1. Left palm wound ~2cm in diameter From a use of Nitrogen at his workplace to remove a suspected skin wart DOI: ~03/25/25 This is not a work related injury I educated him about this condition I discussed operative and non-operative treatment options No operative intervention indicated at this time I explained the signs and symptoms of infection, if the patient develops any new or worsening erythema, drainage, pain, or warmth they should contact the clinic or attend the ED. He should clean the wound and apply topical Abx ointment 1-2X daily. No further antibiotics indicated I instructed him on proper wound care, including frequent dressing changes and keeping the area clean & dry Patient has since seen Dermatology, who gave him some spray 2 aid with wound healing, no acute dermatologic intervention indicated beyond that at this time He will follow up next week with me for a wound check Coding Level of Care Code Est Pt Level 3 (83409) Diagnoses Mass of palm R22.30
== END 2025-04-15 14:24 | disposition home or self-care (01) ==
LOC: HO.HOS 13:20
PROVIDERS: PCP Internal Medicine
DX: R22.32 Localized swelling, mass and lump, left upper limb (principal)
CPT/HCPCS: 99213

== ENCOUNTER 2025-04-16 13:45 | Outpatient (AMB) | payer BC, SELFPAY ==
[2025-04-16 13:57] VITALS: BP 120/70; PULSE 102; RESP 19; O2SAT 96; BMI 25.2
--- NOTE | 2025-04-16 13:57 | MHC.PC.OV ---
Vital Signs 04/16/25 13:57 Height 5 ft 8 in Weight 166 lb BMI 25.2 BP 120/70 Blood Pressure Location Rt brachial Position Sitting Respiration 19 Pulse 102 H Pulse Source Pulse Oximeter Pulse Oximetry (%) 96 Oxygen Delivery Method Room Air Intake Visit Reasons: 4 months f/up Intake Note: Pt is here today for 4 months follow up visit on BP. Allergies No Known Allergies Allergy (Verified 04/16/25 14:04) Medication List - Last Reconciled 04/16/25 by Parris Devi MD amlodipine 10 mg PO DAILY ammonium lactate 12% 1 appl topical BID PRN atorvastatin 40 mg PO DAILY bupropion HCl XL 300 mg PO QAM fenofibrate 160 mg PO DAILY fluticasone propionate 50 mcg/actuation (Allergy Relief (fluticasone)) 1 spray intranasal DAILY ibuprofen 600 mg PO Q8H PRN loratadine (Claritin) 10 mg PO DAILY metoprolol succinate ER 150 mg (1.5 x 100 mg) PO DAILY omeprazole 20 mg PO QPM thiamine HCl (vitamin B1) 100 mg PO DAILY umeclidinium-vilanterol 62.5-25 mcg/actuation (Anoro Ellipta) 1 inh inhalation DAILY valacyclovir (Valtrex) 1,000 mg PO Q8H varenicline tartrate (Chantix Starting Month Box) PO PER PKG DIR varenicline tartrate (Chantix Continuing Month Box) 1 mg PO BID Tobacco use date assessed: 04/16/25 Dental Screening Dental Screen Date: 08/25/24 HPI 4 months f/up HPI Details Pt presents for f/u HTN, hyperlipid, COPD, stable on meds. [facility] Medical History (Updated 04/16/25 @ 14:57 by Parris Devi MD) Burn of right palm Cough Obstructive sleep apnea Hoarseness Personal history of nicotine dependence Renal cyst, acquired, right Colonoscopy refused Tobacco dependence Hyperlipidemia Hip pain, bilateral Chronic right flank pain Complex renal cyst Chronic anxiety Hypertension Surgical History History of left knee surgery History of colonoscopy Family History Father No problems noted. Mother Stroke Social History Housing: House Alcohol intake: current Alcohol intake frequency: holidays/special occasions only Alcohol type: beer Patient Tobacco Use Status: Current everyday Tobacco user Tobacco use type: Cigarette Cigarettes Per Day: 15 Years Smoked: 35, onset 23, 3/4ppd x 37yrs, 25+PYH e-Cigarette/Vaping Use: Never Used service: No Current occupational status: employed Cognitive needs: No Hearing needs: No Vision needs: Yes Questionnaire Thrive Questionnaire Date Thrive assessed: 08/25/24 EDITH-7 AMB Questionnaire EDITH-7 Date EDITH - 7 assessed: 08/25/24 Source: Developed by Drs. Mir Barros, Stephanie Greene, Rashad Avila and colleagues, with an educational alyssa from [employer]. Review of Systems Const All systems reviewed & are unremarkable except as noted in HPI and below Eyes Reports no additional complaints ENT Reports no additional complaints Card Reports no additional complaints Resp Reports no additional complaints GI Reports no additional complaints Reports no additional complaints Physical exam (Primary Care) Vital Signs: Last Vital Signs Pulse 102 H 04/16/25 13:57 Resp 19 04/16/25 13:57 BP 120/70 04/16/25 13:57 Pulse Ox 96 04/16/25 13:57 Oxygen Delivery Method Room Air 04/16/25 13:57 BMI result Body Mass Index 25.2 Tobacco/Smoking Status: Tobacco use Status Tobacco use date assessed 04/16/25 04/16/25 14:05 Patient Tobacco Use Status Current everyday Tobacco 04/16/25 14:00 Tobacco use type Cigarette 04/16/25 14:00 e-Cigarette/Vaping Use Never Used 04/16/25 14:00 Thrive Assessment: Date of Thrive Assessment Date Thrive assessed 08/25/24 04/16/25 14:00 Const General: no acute distress HENMT Head: Yes normal to inspection Ears: hearing grossly normal bilaterally Face and sinus: Yes normal facial exam Throat: Yes posterior oropharynx normal Eyes General: appearance normal, both eyes and all related structures Neck Neck: Yes supple Resp Effort & Inspection: normal respiratory effort Auscultation: clear to auscultation bilaterally Cardio Rhythm: regular rhythm Heart sounds: S1 normal heart sound present and S2 normal heart sound present GI Inspection: Yes normal to inspection Palpation (GI): Soft to palpation Percussion: Yes normal to percussion Auscultation: normal bowel sounds Coding Level of Care Code Est Pt Level 4 (26367) Diagnoses Hypertension I10 Hyperglycemia R73.9 Hyperlipidemia E78.5 Burn of right palm T23.051A Assessment & Plan Assessment & Plan (1) Hypertension: Code(s): I10 - Essential (primary) hypertension Category: Medical Plan: Continue current medications (2) Hyperglycemia: Comment: A1c 5.6 02/14 Code(s): R73.9 - Hyperglycemia, unspecified Category: Medical Plan: A1c is 5.9, continue ADA diet regular exercise follow-up in 4 months with a fasting labs before (3) Hyperlipidemia: Code(s): E78.5 - Hyperlipidemia, unspecified Category: Medical Plan: Continue statin (4) Burn of right palm: Comment: From liquid nitrogen, follow-up with dermatology Code(s): T23.051A - Burn of unspecified degree of right palm, initial encounter Category: Medical Plan: The wound is almost completely healed patient is established with Dermatology
== END 2025-04-16 14:59 | disposition home or self-care (01) ==
LOC: HO.HMCC 13:46
PROVIDERS: PCP Internal Medicine; Visit Provider Internal Medicine
DX: I10 Essential (primary) hypertension (principal); R73.9 Hyperglycemia, unspecified; E78.5 Hyperlipidemia, unspecified; T23.051A Burn of unspecified degree of right palm, initial encounter

== ENCOUNTER 2025-04-22 13:02 | Outpatient (AMB) | payer BC, SELFPAY ==
--- NOTE | 2025-04-22 13:18 | A.OFFVIS_ITS ---
Vital Signs 3 04/22/25 13:25 Height 5 ft 8 in Weight 166 lb BMI 25.2 Handedness Right Intake Visit Reasons: OV-left palm infection-1 WK wound check Intake Note: Yesica is a 64 year old right hand dominant [place] speaking man who presents for a left palm wound check. Patient reports he puts antibiotic cream on it daily. Area Development Consultant Required: Yes Area Development Consultant Language: [place] Area Development Consultant Services: Area Development Consultant Present (ipad) Area Development Consultant Name: [id number] Allergies No Known Allergies Allergy (Verified 04/22/25 13:25) HPI HPI OV-left palm infection-1 WK wound check: Details: Yesica is a 64 year old right hand dominant [place] speaking man who presents for a left palm wound check. Patient reports he puts antibiotic cream on it daily. Patient states that he has seen Dermatology, and that they have given him some creams or in sprays to aid in wound healing. Patient states he will follow-up with them once the wound is healed in order to discuss what the growth was. [facility] Medical History Burn of right palm Cough Obstructive sleep apnea Hoarseness Personal history of nicotine dependence Renal cyst, acquired, right Colonoscopy refused Tobacco dependence Hyperlipidemia Hip pain, bilateral Chronic right flank pain Complex renal cyst Chronic anxiety Hypertension Surgical History History of left knee surgery History of colonoscopy Family History Father No problems noted. Mother Stroke Social History Housing: House Alcohol intake: current Alcohol intake frequency: holidays/special occasions only Alcohol type: beer Patient Tobacco Use Status: Current everyday Tobacco user Tobacco use type: Cigarette Cigarettes Per Day: 15 Years Smoked: 35, onset 23, 3/4ppd x 35yrs, 25+PYH e-Cigarette/Vaping Use: Never Used service: No Current occupational status: employed Cognitive needs: No Hearing needs: No Vision needs: Yes Review of Systems Const All systems reviewed & are unremarkable except as noted in HPI and below Physical Exam Vital Signs: BMI result Body Mass Index 25.2 Const General: cooperative, healthy appearing and no acute distress Orientation/consciousness: patient oriented x3 HEENT Head: Yes normocephalic and Yes atraumatic Eyes EOM: EOMs intact bilaterally Resp Effort & Inspection: normal respiratory effort and able to speak in complete sentences Cardio Jugular venous distension: no JVD Skin General skin exam: turgor normal Rashes: no rashes Neuro General: patient oriented x3 Extrem Other: Evaluation of Left Upper Extremity: The patient is alert, oriented, and in no acute distress Neuro: Median, Ulnar, Radial nerves motor and sensory intact and sensation is normal to the tips of all digits Vascular: Cap refill brisk ROM: He can easily make a fist and extend all his digits General: No Ecchymosis. He has an ~.75cm diameter wound, over the a1 denia area of the middle finger. This appears full thickness through the skin, no exposed tendons. Additional granulation tissue forming. No surrounding erythema swelling or evidence of infection at present. Psych Appearance: grossly normal Affect: normal affect Attitude: cooperative Assessment & Plan Assessment & Plan (1) Mass of palm: Comment: L Code(s): R22.30 - Localized swelling, mass and lump, unspecified upper limb Category: Medical Plan Assessment & Plan: 1. Left palm wound ~2cm in diameter From a use of Nitrogen at his workplace to remove a suspected skin wart DOI: ~03/25/25 This is not a work related injury I educated him about this condition I discussed operative and non-operative treatment options No operative intervention indicated at this time I explained the signs and symptoms of infection, if the patient develops any new or worsening erythema, drainage, pain, or warmth they should contact the clinic or attend the ED. He should clean the wound and apply topical Abx ointment 1-2X daily. No further antibiotics indicated I instructed him on proper wound care, including frequent dressing changes and keeping the area clean & dry Patient has since seen Dermatology, who gave him some spray 2 aid with wound healing, no acute dermatologic intervention indicated beyond that at this time He will follow up in 2 weeks with me for an additional wound check Coding Level of Care Code Est Pt Level 3 (14653) Diagnoses Mass of palm R22.30
[2025-04-22 13:25] VITALS: BMI 25.2
== END 2025-04-22 13:41 | disposition home or self-care (01) ==
LOC: HO.HOS 13:02
PROVIDERS: PCP Internal Medicine
DX: S61.402A Unspecified open wound of left hand, initial encounter (principal)
CPT/HCPCS: 99213

== ENCOUNTER 2025-06-12 12:41 | Outpatient (AMB) | payer BC, SELFPAY ==
--- NOTE | 2025-06-12 12:53 | MHC.PC.OV ---
Vital Signs 06/12/25 12:57 Height 5 ft 8 in Weight 169 lb BMI 25.7 BP 128/68 Blood Pressure Location Lt brachial Position Sitting Respiration 17 Pulse 110 H Pulse Source Pulse Oximeter Pulse Oximetry (%) 98 Oxygen Delivery Method Room Air Intake Visit Reasons: Hip pain for over a week Intake Note: Pt is here today for a sick visit. Pt c/o L hip pain for almost a week now. Pt states that he has been taking Ibuprofen 600 mg otc but its not helping. Allergies bupropion Allergy (Verified 06/12/25 13:01) Hallucinations, shakiness weakness Medication List - Last Reviewed 06/12/25 by Nori Helm, RENZO amlodipine 10 mg PO DAILY ammonium lactate 12% 1 appl topical BID PRN atorvastatin 40 mg PO DAILY baclofen 10 mg PO BEDTIME fenofibrate 160 mg PO DAILY ibuprofen 600 mg PO TID metoprolol succinate ER 150 mg (1.5 x 100 mg) PO DAILY tamsulosin 0.4 mg PO DAILY [vitamin d3 with K2 PO] Tobacco use date assessed: 04/16/25 Dental Screening Dental Screen Date: 08/25/24 HPI Hip pain for over a week HPI Details Pt patient complains of recurrent lower back pain radiating to left buttock and left lower extremity for 3 days. The pain is worse when patient is sitting or standing. He denies any weakness or numbness in extremities change in bowel or bladder function. He has been taking 600 mg of ibuprofen with some relief. Patient usually has chiropractic manipulation which has been very helpful for his chronic back pain. Hypertension hyperlipidemia controlled on current medications. Patient had reaction to bupropion 300 mg tablets, agitation tremor insomnia after taking it for 3 days. Patient has not been taking bupropion for a few months before he ran out of refills. [facility] Medical History Nicotine dependence, cigarettes, uncomplicated Burn of right palm Cough Obstructive sleep apnea Hoarseness Renal cyst, acquired, right Colonoscopy refused Hyperlipidemia Hip pain, bilateral Chronic right flank pain Complex renal cyst Chronic anxiety Hypertension Surgical History History of left knee surgery History of colonoscopy Family History Father No problems noted. Mother Stroke Social History Housing: House Alcohol intake: current Alcohol intake frequency: holidays/special occasions only Alcohol type: beer Patient Tobacco Use Status: Current everyday Tobacco user Tobacco use type: Cigarette Cigarettes Per Day: 15 Years Smoked: 35, onset 23, 3/4ppd x 35yrs, 25+PYH e-Cigarette/Vaping Use: Never Used service: No Current occupational status: employed Cognitive needs: No Hearing needs: No Vision needs: Yes Questionnaire Thrive Questionnaire Date Thrive assessed: 08/25/24 EDITH-7 AMB Questionnaire EDITH-7 Date EDITH - 7 assessed: 08/25/24 Source: Developed by Drs. Mir Barros, Stephanie Greene, Rashad Avila and colleagues, with an educational alyssa from [employer]). Review of Systems Const All systems reviewed & are unremarkable except as noted in HPI and below Eyes Reports no additional complaints ENT Reports no additional complaints Card Reports no additional complaints Resp Reports no additional complaints GI Reports no additional complaints Reports no additional complaints Physical exam (Primary Care) Vital Signs: Last Vital Signs Pulse 110 H 06/12/25 12:57 Resp 17 06/12/25 12:57 BP 128/68 06/12/25 12:57 Pulse Ox 98 06/12/25 12:57 Oxygen Delivery Method Room Air 06/12/25 12:57 BMI result Body Mass Index 25.7 Tobacco/Smoking Status: Tobacco use Status Tobacco use date assessed 04/16/25 06/12/25 12:53 Patient Tobacco Use Status Current everyday Tobacco 06/12/25 12:53 Tobacco use type Cigarette 06/12/25 12:53 e-Cigarette/Vaping Use Never Used 06/12/25 12:53 Thrive Assessment: Date of Thrive Assessment Date Thrive assessed 08/25/24 06/12/25 12:53 Const General: no acute distress HENMT Head: Yes normal to inspection Resp Effort & Inspection: normal respiratory effort Auscultation: clear to auscultation bilaterally Cardio Rhythm: regular rhythm Heart sounds: S1 normal heart sound present and S2 normal heart sound present Back/Spine/Pelvis Other: Paraspinal tenderness in lower lumbar region left more than right, straight leg rising 40 degrees on the left 90 degrees on the right, deep tendon reflexes 1+ bilaterally strength 5/5 bilaterally Coding Level of Care Code Est Pt Level 4 (14550) Diagnoses Hypertension I10 Sciatica M54.30 Assessment & Plan Assessment & Plan (1) Hypertension: Code(s): I10 - Essential (primary) hypertension Category: Medical Plan: Continue medications (2) Sciatica: Code(s): M54.30 - Sciatica, unspecified side Category: Medical Plan: For recurrent sciatica patient will follow-up with chiropractor, ibuprofen 600 mg 3 times a day and baclofen prescribed. Supportive care discussed with the patient Medications: New ibuprofen 600 mg PO TID 60 tabs 0RF baclofen 10 mg PO BEDTIME 20 tabs 0RF [vitamin d3 with K2] PO
[2025-06-12 12:57] VITALS: BP 128/68; PULSE 110; RESP 17; O2SAT 98; BMI 25.7
== END 2025-06-12 15:22 | disposition home or self-care (01) ==
LOC: HO.HMCC 12:41
PROVIDERS: PCP Internal Medicine; Visit Provider Internal Medicine
DX: I10 Essential (primary) hypertension (principal); M54.30 Sciatica, unspecified side